=== PATIENT | female | born 1940 | race Caucasian/White ===

== ENCOUNTER → 2023-07-10 13:30 | Outpatient (REF) | payer MEDICARE, SELFPAY | LOC: WDC 13:30 | PROVIDERS: ATTENDING PHYSICIAN Student in an Organized Health Care Education/Training Program | DX: Z12.31 Encounter for screening mammogram for malignant neoplasm of breast (principal); M81.0 Age-related osteoporosis without current pathological fracture | CPT/HCPCS: 77063; 77067; 77080 ==

== ENCOUNTER 2023-09-28 15:10 | Inpatient (IN) | payer MEDICARE, SELFPAY ==
[2023-09-28] VITALS (15 sets, daily range): BP systolic 111–138; BP diastolic 51–80; BMI 35.3
--- NOTE | 2023-09-28 12:27 | ED TECH ---
A STEMI ALERT was called #[id number]#@12:18 PM Per .
--- NOTE | 2023-09-28 12:30 | ED.GENMED ---
History of Present Illness
General
Chief Complaint: Cardiac Symptoms
Source: patient
Exam Limitations: none
Time Seen by Provider: 09/28/23 12:27
Nursing documentation reviewed up to this point in time: agreed with
Travel History
Have you had any contact with someone who has COVID-19?: No
Do you have any symptoms of coronavirus? Fever > 100 degrees, chills, cough, shortness of breath, sore throat, loss of taste or smell, muscle aches, or headache?: No
History of Present Illness
History of Present Illness:
Patient presents to ED secondary to dizziness, nausea, along with abdominal pain. Patient's friend also noted 'slurred speech' and 911 was called. When medics arrived at scene, patient was complaining of nausea sensation and was found to be
hypotensive. Prehospital EKG revealed potential ST elevation [place]. Upon arrival, patient is somnolent but are easily arousable, and is only complaining abdominal pain and nausea sensation. Denies chest pain or shortness of breath. Denies headache.
Denies previous history of similar symptoms.
Past History
Past History
ED Past Medical History: GERD, HTN and Other (colon Polyps)
Social History
Tobacco: Non-smoker
Family History
Family History: Cancer (colon)
Review of Systems
Review of Systems
Allergies reviewed?: Yes
All Other Systems: ROS reviewed and negative except as documented in HPI and ROS
Constitutional: Reports no symptoms
Respiratory: Reports no symptoms; Denies trouble breathing
Cardiac: Denies chest pain or syncope
ABD/GI: Reports abdominal pain and nausea; Denies vomiting
Musculoskeletal: Reports no symptoms
Skin: Reports no symptoms
Neurological: Reports dizzy
Phy Exam
Physical Exam
Physical Exam:
Physical Exam
General: moderate distress, ill appearing. afebrile
Head: nc/at. eomi
Neck: supple. no meningeal signs.
Heart: s1/s2 regular rate and rhythm, systolic ejection murmur. equal radial pulses.
Lungs: no acute respiratory distress. clear bilaterally
Abdomen: normal bowel sounds. diffusely moderately tender with mild distention.
Neuro: somnolent but easily arousable. no focal neurological deficits
Skin: no rash
Psychiatric: well kept. interactive and cooperative
Extremities: no edema. no calf tenderness.
Course
Orders/Labs/Results
Orders:
Orders
09/28/23
Electrocardiogram (*1) Stat
Reason for Study: Chest Pain
Comment: DONE NO ORDER ENTERED
09/28/23 12:21
EKG [Electrocardiogram (*1)] Stat
Reason for Study: Chest Pain
09/28/23 12:22
EKG- Treatment ONCE
09/28/23 12:24
Ondansetron Injectable [Zofran] 4 mg .ROUTE .STK-MED ONE
Ondansetron Injectable [Zofran] 4 mg .ROUTE .STK-MED ONE
09/28/23 12:27
CT Head & Neck Angio W/wo IV Urgent
Comment:
Reason For Exam: dizziness/slurred speech
09/28/23 12:28
CT Chest/abd/pelvis Angio W/wo Urgent
Comment:
Reason For Exam: abdominal pain
09/28/23 12:29
Complete Blood Count/With Diff Urgent
Comprehensive Metabolic Panel Urgent
Lipase Urgent
Comment: ADD-ON
PT/INR [Prothrombin Time] Urgent
PTT Urgent
Comment: ADD ON
Troponin I Urgent
09/28/23 12:52
Fentanyl Citrate/Pf [Sublimaze] 25 mcg IV NOW STA
Ondansetron Injectable [Zofran] 4 mg IV NOW STA
09/28/23 12:56
0.9% Sodium Chloride 500 ml [Nss] 500 ml IV BOLUS
09/28/23 13:03
Type+Screen Urgent
09/28/23 13:53
Aspirin Chewable [Low Strength Aspirin] 324 mg PO NOW STA
09/28/23 13:[address] Non Medication Order As Directed
Physician Order: PTT 6 hours after initial start of Heparin infusion
Above order entered?: Yes
09/28/23 13:55
Add On- LAB Urgent
Tests Added?: PTT
09/28/23 14:00
Heparin 49815 Units/250 ml 25,000 units in 250 ml IV PER PROTOCOL
Weight to be used for heparin protocol in kilograms (kg):: 83.9
Protocol:: Cardiac Tx/Acute Coronary
PTT Goal Range to be used:: PTT 73 to 111 seconds
Order type:: Initial
INITIAL Infusion Dose (UNITS/KG/hr) & then follow protocol:: 12 units/kg/hr
Infusion Dose in UNITS/hr & then follow protocol (UNITS/hr):: 1,000
INFUSION RATE in mL/hr & then follow protocol (mL/hr):: 10
PTT less than or equal to 64 seconds:: Increase rate by 200 units/hr (+ 2 mL/hr)
PTT 64.1 to 72.9 seconds:: Increase rate by 100 units/hr (+ 1 mL/hr)
PTT 73 to 111 seconds:: Target Range. No change in rate.
PTT 111.1 to 130.9 seconds:: Decrease rate by 100 units/hr (- 1 mL/hr)
PTT 131 to 199.9 seconds:: HOLD for 1 hr. Then decrease rate by 200 units/hr (- 2 mL/hr)
PTT greater than or equal to 200 seconds:: HOLD for 2 hrs & Notify Provider. Then decrease by 200 units/hr (-
2 mL/hr)
Lab follow-up:: Each change, PTT q6h until 2 consecutive are therapeutic. Then PTT
daily.
09/28/23 14:05
Add On- LAB Routine
Tests Added?: lipase
09/28/23 14:32
Admit/Transfer Patient As Directed
Co-Sign Provider:
Level of Care: Inpatient admission
Assign to:: IVU
Physician / Group: [facility]
Diagnosis: ACS
Reason for Hospitalization: Cardio consult
Expected length of stay greater than two midnights?: Yes
ELOS- Estimated Length of Stay in days: 3
I certify the patient meets the requirements for IP care: Yes
09/28/23 14:34
Code Status As Directed
Resuscitation Status: Full Code
09/28/23 15:22
0.9% Sodium Chloride 1000 ml [Nss] 1,000 ml IV 80 mls/hr
Acetaminophen [Tylenol] 650 mg PO Q6HPRN PRN
Dextrose 50%-Water [Dextrose 50% Syringe] 12.5 grams IV T30CPNT PRN
Glucagon [GlucaGen] 1 mg IM PRN PRN
Morphine Sulfate 2 mg IV Q4HPRN PRN
Ondansetron Injectable [Zofran] 4 mg IV Q6HPRN PRN
09/28/23 15:22
Echo 2D MMode Color/Doppler [Echo 2D MMode Color/Doppler] Routine
Reason for Study: ACS
CARDIOLOGY CONSULT Routine
Consulting Provider: Naveed Reeves
Was physician already notified: Yes
Activity As Directed
Activity Level: With Assistance
Bedside Glucose Monitoring As Directed
Frequency: AC&HS
Additional Instructions:: Change to q6h if pt on TPN, tube feeding or not eating
09/28/23 16:30
Insulin Aspart Corrective Low [Novolog Flexpen-Low Resistance] See Protocol SC AC
09/28/23 18:00
Duloxetine Delayed Release [Cymbalta Delayed Release] 60 mg PO QPM
09/28/23 18:13
Troponin I Q6H
09/28/23 20:00
Metoprolol [Lopressor] 25 mg PO BID
09/28/23 20:58
PTT Urgent
09/28/23 22:00
Gabapentin [Neurontin] 300 mg PO HS
Tramadol HCl [Ultram] 50 mg PO HS
09/28/23 23:38
Urinalysis Routine
Date Specimen was Collected: 09/28/23
Time Specimen was Collected: 23:35
09/29/23 04:22
Complete Blood Count/With Diff IN AM
Comprehensive Metabolic Panel IN AM
Glycohemoglobin (HgbA1c) IN AM
Troponin I Q6H
09/29/23 08:00
Aspirin Low Dose EC [Aspir Low (Enteric Coated)] 81 mg PO DAILY
Docusate Sodium [Colace] 100 mg PO DAILY
Duloxetine Delayed Release [Cymbalta Delayed Release] 30 mg PO DAILY
09/30/23 01:44
Comprehensive Metabolic Panel IN AM
Abnormal Lab Results
09/28/23
12:29
WBC 12.6 H 10^3/uL
(4.8-10.8)
MCHC 32.6 L g/dL
(33.0-37.0)
RDW 15.9 H %
(11.5-14.5)
Abs Immat Gran (auto) 0.1 H 10^3/uL
(0-0.05)
Absolute Neuts (auto) 10.7 H 10^3/uL
(1.4-6.5)
Neutrophils % 85.1 H %
(42.2-75.2)
Lymphocytes % 10.9 L %
(20.5-51.1)
Carbon Dioxide 20 L mmol/L
(22-30)
BUN 37 H mg/dl
(7-17)
Creatinine 1.7 H mg/dL
(0.6-1.0)
Glucose 230 H mg/dl
(70-99)
AST 47 H U/L
(14-36)
Alkaline Phosphatase 172 H U/L
(38-126)
Lipase 402 H U/L
(23-300)
09/28/23 12:29
09/28/23 12:29
Vital Signs
Initial and Last Documented VS:
Initial Vital Signs
Pulse Resp BP
82 14 124/76
09/28/23 12:24 09/28/23 12:24 09/28/23 12:24
Last Documented Vital Signs
Temp Pulse Resp BP Pulse Ox
98.9 F 70 18 145/67 97
09/29/23 22:52 09/29/23 17:35 09/29/23 22:52 09/29/23 17:32 09/29/23 22:52
MDM/Problems Addressed
MDM/Problems Addressed:
Although prehospital EKG and initial EKG obtained upon arrival to ED suggests ST elevation on inferior leads with reciprocal changes on leads I and aVL, patient does not have any chest pain. However, patient is complaining of significant abdominal
pain with mild distention with nausea sensation. There is a clinical concern for potential dissection. As such, spoke with cardiac cath attending, , and decision made to obtain CT angiogram immediately for further evaluation.
CT neck/chest/abd/pel - no dissection.
Repeat EKG - normalization of initial ST elevation. Discussed with -in light of patient's ongoing abdominal pain without chest pain, increased creatinine level, along with normalization of EKG, does not feel that patient needs emergent
cardiac cath. Instead, recommends cardiology evaluation at bedside along with potential surgical evaluation, if abdominal pain continues.
Patient being evaluated at bedside by Dr. Reeves, [place] [facility].
Critical care statement: A total of 60 minutes of critical care time was provided for this patient. This includes management of unstable vital signs, evaluation of the patient at bedside, reviewing the patient's pertinent medical records, discussion
with consultants, review of old EKGs and review of pertinent medical records. This time with separate from time utilized to perform the aforementioned documented procedures
*EKG
Interpreted by ED Provider?: Yes
EKG Intrepretation Date: 09/28/23
Heart Rate: 81
Rate: normal
Rhythm: sinus
Ischemia: ST elevation
*Critical Care Note
Total Time (30-74mins, 75-104mins- exclusive of procedures): 60 min
ED Attending Note
-
Portions of this chart may have been created with voice recognition software.� Occasional wrong word or��sound alike� substitutions may have occurred due to the inherent limitations of voice recognition software.
Discharge Plan
Departure
Patient Disposition: Admit
Date of Disposition: 09/28/23
Time of Disposition: 13:46
Admit to: IMU
Presentation/result/management discussed w/ accepting MD/DO: Hospitalist
Discharge Problem:
Abnormal ECG, Acute renal failure (ARF), Abdominal pain
Interventions
Interventions:
*Risk Screen - Suicide Last Done: 09/28/23 12:53
*General Assessment Last Done: 09/28/23 12:36
*Neglect/Abuse Screening Last Done: 09/28/23 12:53
ED- Fall Risk Assessment Last Done: 09/28/23 15:58
*ED COVID-19 Vaccine History Last Done: 09/28/23 12:36
*Nursing Disposition Last Done: 09/28/23 15:58
ED- Pulmonary Assessment Last Done: 09/28/23 12:57
ED- Cardiac Assessment Last Done: 09/28/23 12:57
Discharge Date and Time
Discharge Date/Time: 09/28/23 15:58
[2023-09-28 12:38] LABS: % Basophils 0.2 % (0-2); % Eosinophils 0.9 % (0-6); % Immature Granulocytes 0.5 % (0-0.5); % Lymphocytes 10.9 % (20.5-51.1); % Monocytes 2.4 % (1.7-9.3); % Neutrophils 85.1 % (42.2-75.2); Absolute Eosinophils 0.1 10^3/uL (0-0.7); Absolute Immature Granulocytes 0.1 10^3/uL (0-0.05); Absolute Lymphocytes 1.4 10^3/uL (1.2-3.4); Absolute Monocytes 0.3 10^3/uL (0.1-0.6); Absolute Neutrophils 10.7 10^3/uL (1.4-6.5); Hematocrit 40.8 % (37.0-47.0); Hemoglobin 13.3 g/dL (12.0-16.0); Mean Corp Hgb Conc. 32.6 g/dL (33.0-37.0); Mean Corpuscular Hgb 28.4 pg (27.0-31.0); Mean Platelet Volume 9.5 fL (7.4-10.4); Nucleated Red Blood Cells % 0 %; Platelet Count 317 10^3/uL (130-400); Red Blood Cell Count 4.69 10^6/uL (4.20-5.40); Red Cell Dist. Width 15.9 % (11.5-14.5); White Blood Cell Count 12.6 10^3/uL (4.8-10.8)
[2023-09-28 12:50] LABS: INR 1.11; PT 14.1 Sec (11.4-14.6)
[2023-09-28 12:51] LABS: ALT (SGPT) 30 U/L (0-35); AST (SGOT) 47 U/L (14-36); Albumin 4.6 g/dl (3.5-5.0); Alkaline Phosphatase 172 U/L (38-126); Blood Urea Nitrogen 37 mg/dl (7-17); Calcium 9.8 mg/dl (8.4-10.2); Carbon Dioxide 20 mmol/L (22-30); Chloride 105 mmol/L (98-107); Glucose 230 mg/dl (70-99); Potassium 4.5 mmol/L (3.5-5.1); Sodium 140 mmol/L (135-145); Total Bilirubin 0.8 mg/dl (0.2-1.3); Total Protein 7.2 g/dl (6.3-8.2); eGFR 29.94
[2023-09-28] MEDS: SUBLIMAZE 25 MCG IV (12:56)
[2023-09-28] MEDS: ZOFRAN 4 MG IV (12:56)
[2023-09-28 13:02] LABS: Troponin I 0.015 ng/ml
[2023-09-28] MEDS: NSS 500 IV (13:10)
--- NOTE | 2023-09-28 14:09 | CON.CAR ---
Consultation
Consultation Request
Date/Time Consultation Requested: 09/28/23 1:30
Date/Time Consultation Performed: 09/28/23 1:40
Requesting Provider: Dr Atwood
Performing Provider: Dr Reeves
Reason for Consultation: ST elevation/abd pain
Medical History
-
Chief Complaint: abd pains
History of Present Illness:
83-year-old female with a past medical history of moderate aortic stenosis, non-insulin dependent diabetes, hypertension, hyperlipidemia and sleep apnea presents to [facility] with abdominal pains, nausea, and sweats. The patient states she
was in her usual state of health when today she came home after her 1.7 mile walk and went to the bathroom. She was having a bowel movement when she suddenly felt marked epigastric and abdominal pains, sweats, and nausea. She felt like she was
weak and could not move. The pains persisted and she felt very tired. She denied any chest pains. She was unable to tack picker the phone to call 911. She spoke with a neighbor who called EMS and brought her to the emergency room. While on the way
to the emergency room she was found to have inferior ST elevation with reciprocal lateral depression. She had no chest pains continue to feel generalized weakness. She also noticed some pain in her back and left shoulder. She was evaluated for
urgent care in the cardiac [employer] but was felt with her abnormal symptoms to proceed with CT scanning. CT of the chest abdomen and pelvis was negative for aortic dissection or any marked abdominal pathology. CT scan of the head also was
unremarkable. Her EKG was repeated and her ST elevation resolved. Currently she is resting in bed and denies any abdominal pains, sweats, or nausea. She does have some residual left scapular and back pains. She does have a history of spinal
stenosis. She also was recently treated with antibiotics for a bladder infection for 5 days and finished today. She believes this was with TMP sulfa. She has no bleeding. She states she has never had the symptoms previously.
Past Medical History
Past Medical History: Cancer (Breast cancer status post left mastectomy 2008), GERD (Esophagitis, history of duodenal ulcer), HTN, Hypercholesterolemia, NIDDM, Valvular Disease (Moderate aortic stenosis) and Other (Fibromyalgia)
Past Surgical History: Orthopedic (Right shoulder replacement 2019, L2-L5 laminectomy, bilateral knee replacements 2006, mid urethral sling 2020, gastric band 1997, mastectomy left 2008)
Social History
Tobacco: Non-Smoker
Alcohol: None
Drug: None
Living: With Family
Employment: Retired
Family History
Family History: CAD and Hypertension
Allergies / Home Medications
Allergy/AdvReac Type Severity Reaction Status Date / Time
adhesive Allergy SKIN TEARS Verified 03/13/21 11:51
chlorhexidine Allergy Rash Verified 03/13/21 12:37
[facility]
�Medication �Instructions �Recorded �Confirmed �Type
amlodipine 5 mg tablet 5 mg PO DAILY 03/25/17 09/28/23 History
celecoxib 200 mg capsule 200 mg PO DAILY 03/25/17 09/28/23 History
duloxetine 30 mg capsule,delayed 30 mg PO DAILY 03/25/17 09/28/23 History
release
omeprazole 20 mg capsule,delayed 20 mg PO Q72H 03/25/17 09/28/23 History
release
tramadol 50 mg tablet 50 mg PO HS 03/25/17 09/28/23 History
Turmeric W/ Black Pepper Extra 1 tab PO HS 03/09/21 09/28/23 History
Vitamin B Complex 1,200 units sublingual SA 03/09/21 09/28/23 History
hpwsglg-iiq-qbn S7-Z0-ymvjjxct 250 1 ea PO DAILY 03/09/21 09/28/23 History
mg-40 mg-5 mg-125 unit tablet
(Calcium Citrate Plus (pyridoxine))
docusate sodium 100 mg capsule 100 mg PO DAILY 03/09/21 09/28/23 History
duloxetine 60 mg capsule,delayed 60 mg PO QPM 03/09/21 09/28/23 History
release
gabapentin 300 mg capsule 300 mg PO HS 03/09/21 09/28/23 History
multivitamin (One Daily Essential 1 ea PO DAILY 03/13/21 09/28/23 History
tablet)
cholecalciferol (vitamin D3) 25 50 mcg PO DAILY 09/28/23 09/28/23 History
mcg (1,000 unit) tablet (Vitamin
D3)
lisinopril 40 mg tablet 40 mg PO DAILY 09/28/23 09/28/23 History
simvastatin 10 mg tablet 10 mg PO HS 09/28/23 09/28/23 History
Review of Systems
-
History Source: Patient
Constitutional: Fatigue
EENT: No Symptoms
Respiratory: Trouble Breathing
Cardiac: Diaphoresis
Abdomen/GI: Abdominal Pain and Nausea
: No Symptoms
Musculoskeletal: No Symptoms
Skin: No Symptoms
Neurological: Weakness
Endocrine: No Symptoms
Hematologic/Lymphatic: No Symptoms
Physical Exam
Vital Signs
Pulse Resp BP Pulse Ox
85 13 124/76 94
09/28/23 13:00 09/28/23 13:00 09/28/23 12:37 09/28/23 12:57
Lab Results
09/28/23 12:29
09/28/23 12:29
Troponin I 0.015 ng/ml 09/28/23 12:29
Physical Exam
General: Well Developed, Well Nourished and No Apparent Distress
HEENT: Normocephalic and Anicteric
Respiratory: Clear and Non Labored Respirations
Cardiac: S1/S2, Regular Rhythm and Murmur (3/6 syst RSB)
GI: Soft, Non Tender and Non Distended
Genito-urinary: No Costovertebral Tender
Musculoskeletal: Edema (Trace edema)
Skin: Warm and Dry
Neuro: AO x 3
Psych: Calm
Impression / Plan
-
Assess:
Epigastric pain, nausea, sweats
Inferior ST elevation which has resolved
Acute renal failure with creatinine of 1.7 (baseline normal)
moderate aortic stenosis
Hypertension
Hyperlipidemia
Xqy-nzbgjlq-qbpqdwiim diabetes
History of breast cancer status postmastectomy 2008
Fibromyalgia
History of duodenal ulcer/GERD
Anemia
Recent UTI status post Bactrim treatment
Echo 12/19: LVEF 65%, moderate aortic stenosis with mean gradient of 31, aortic valve area 1.3, mild TR with PA pressure 48
Plan:
She presents with severe abdominal pains, nausea, sweats and inferior ST elevation which has resolved.
CT scan of the chest abdomen pelvis had no aortic dissection or significant abdominal pathology. Preliminary read on the head CT is overall unremarkable for stroke.
The etiology of her symptoms remains somewhat unclear. I suspect that she likely has some level of coronary artery disease with her symptoms and abnormal EKG although her EKG findings are dramatically improved.
Will give aspirin now. Start IV heparin with no bolus. Will add metoprolol 25 mg p.o. every 12.
Continue to trend troponin and check echocardiogram. I suspect troponin will be abnormal.
Her creatinine is elevated at 1.7. Will gently hydrate and avoid all renal toxic drugs including RAYMUNDO inhibitors. This could be from recent antibiotics for UTI. It sounds like she was getting Bactrim.
I suspect she may need a cardiac catheterization this admission but for now I will hold off and treat her conservatively.
Okay to use morphine for pain.
She does have moderate aortic stenosis and we will reevaluate her aortic valve.
Data Reviewed
-
EKG: Tracing Personally Visualized and interpreted
Radiology: Report Reviewed by me
Medical Tests (Nuc Med, Echo etc): Report Reviewed by me
Labs: Labs Reviewed by me
Old Records: Reviewed
[2023-09-28] MEDS: HEPARIN 25000 UNITS/250 ML IV (14:14)
[2023-09-28] MEDS: LOW STRENGTH ASPIRIN 324 MG PO (14:29)
--- NOTE | 2023-09-28 14:39 | HPS.HSE ---
Family Physician
-
Family Physician: Nyla Bundy,
Chief Complaint
-
Abdominal pain, nausea
History of Present Illness
83-year-old female who was in her usual state of health up until this morning when she was straining on the toilet trying to have a bowel movement around 10 AM when she had sudden onset of abdominal discomfort and nausea and sweats.
Her friend noticed that she was slurring her speech. Paramedics arrived and noted that she is hypotensive.
She denies chest pain or shortness of breath. Denies headache.
Is complaining of back pain from her lower back up to her neck. Also complaining of left-sided posterior neck pain that she states is acute on chronic.
She was started on antibiotics for a recent UTI, last dose to be this evening. She believes it is sulfamethoxazole.
Medical History
Past Medical History
Past Medical History: Reports Other
Additional Past Medical History:
Cervical spine stenosis
Diverticulosis
GERD
Esophagitis
Duodenal ulcer
Hyperlipidemia
Diet controlled DM 2
Essential hypertension
Colon polyps
Breast cancer
Moderate aortic stenosis
Fibromyalgia
Past Surgical History: Reports Other
Additional Past Surgical History:
Gastric bypass surgery 1997
Cholecystectomy
Bilateral knee replacement
Right shoulder replacement
Left mastectomy 2008
L2-L5 laminectomy
Mid urethral sling 2020
Social History
Tobacco: Non-smoker
Alcohol: Occasional
Drug: None
Living: With Family
Employment: Retired
Family History
Family History: Not pertinent
Allergies / Home Medications
Allergies reflects when Allergies were last updated in [facility].
Home Medications with original date entered in [facility]
Allergy/Medication List:
Allergies
Allergy/AdvReac Type Severity Reaction Status Date / Time
adhesive Allergy SKIN TEARS Verified 03/13/21 11:51
chlorhexidine Allergy Rash Verified 03/13/21 12:37
[From [facility]]
Home Medications
amlodipine 5 mg tablet 5 mg PO DAILY 03/25/17
celecoxib 200 mg capsule 200 mg PO DAILY 03/25/17
duloxetine 30 mg capsule,delayed release 30 mg PO DAILY 03/25/17
omeprazole 20 mg capsule,delayed release 20 mg PO Q72H 03/25/17
tramadol 50 mg tablet 50 mg PO HS 03/25/17
Turmeric W/ Black Pepper Extra 1 tab PO HS 03/09/21
Vitamin B Complex 1,200 units sublingual SA 03/09/21
ratojsm-pdh-nod G0-A5-cshxlddc 250 mg-40 mg-5 mg-125 unit tablet (Calcium Citrate Plus (pyridoxine)) 1 ea PO DAILY 03/09/21
docusate sodium 100 mg capsule 100 mg PO DAILY 03/09/21
duloxetine 60 mg capsule,delayed release 60 mg PO QPM 03/09/21
gabapentin 300 mg capsule 300 mg PO HS 03/09/21
multivitamin (One Daily Essential tablet) 1 ea PO DAILY 03/13/21
cholecalciferol (vitamin D3) 25 mcg (1,000 unit) tablet (Vitamin D3) 50 mcg PO DAILY 09/28/23
lisinopril 40 mg tablet 40 mg PO DAILY 09/28/23
simvastatin 10 mg tablet 10 mg PO HS 09/28/23
Review of Systems
-
History Source: Patient
A 12 point ROS was completed and negative except as noted: Yes
Abdomen/GI: Reports Abdominal Pain and Nausea
Physical Exam
Vital Signs
Vital Signs
Pulse Resp BP Pulse Ox
80 20 138/80 94
09/28/23 14:16 09/28/23 14:16 09/28/23 14:16 09/28/23 14:15
Physical Exam
General: Well Developed, Well Nourished, No Apparent Distress and Comfortable
HEENT: NormoCephalic, Anicteric and Moist mucous membranes
Respiratory: Clear
Cardiac: S1/S2 and Regular Rhythm
Breast: Deferred by me
GI: Soft, Non Tender and Non Distended
Genito-urinary: Deferred by me
Musculoskeletal: No Clubbing, No Cyanosis and No Edema
Skin: Warm and Dry
Neuro: AO x 3, Nonfocal/grossly intact and Cranial Nerves Intact
Hematologic/Lymphatic: No Lymphadenopathy
Psych: Calm
Laboratory Results
-
09/28/23 12:29
09/28/23 12:29
Laboratory Results
PT 14.1 Sec (11.4-14.6) 09/28/23 12:29
INR 1.11 09/28/23 12:29
APTT Cancelled 09/28/23 13:54
Total Bilirubin 0.8 mg/dl (0.2-1.3) 09/28/23 12:29
AST 47 U/L (14-36) H 09/28/23 12:29
ALT 30 U/L (0-35) 09/28/23 12:29
Alkaline Phosphatase 172 U/L (38-126) H 09/28/23 12:29
Troponin I 0.015 ng/ml 09/28/23 12:29
Impression/Plan
-
ACS -inferior wall WA suspected based on ST elevation inferiorly on EKG. This would explain her hypotension pre-arrival. Admit to IVU. Consult cardiology. Trend troponins. IV fluids. Continue IV heparin, aspirin, beta-tl.
CTA does not show aortic dissection.
Her abdominal pain could be a manifestation of inferior wall WA. Mild lipase elevation noted but doubt clinical pancreatitis.
Staccato speech -unclear etiology. Reportedly CTA head and neck negative. Awaiting report. No focal neurologic findings on exam.
LATRELL -creatinine 1.7. Perhaps due to recent sulfamethoxazole exposure. Hold further antibiotics. Hold lisinopril, Celebrex. Check urinalysis. IV fluid administration. Recheck labs tomorrow.
DM2 with hyperglycemia -diet controlled diabetes. Check hemoglobin A1c. Low resistance NovoLog scale.
Essential hypertension -hold amlodipine for hypotension.
Hyperlipidemia -she is on simvastatin.
Obesity due to excess calories
Full code
Updated family at the bedside.
[2023-09-28 14:42] LABS: Lipase 402 U/L (23-300)
[2023-09-28 14:45] LABS: APTT 30.1 Sec (23.4-35.0)
[2023-09-28 16:24] LABS: Glucose - Point of Care 176 mg/dl (70-99)
[2023-09-28] MEDS: NOVOLOG FLEXPEN-LOW RESISTANCE 1 UNITS SC (17:35)
[2023-09-28] MEDS: NSS 1000 IV (17:35)
[2023-09-28] MEDS: CYMBALTA DELAYED RELEASE 60 MG PO (18:05)
[2023-09-28] MEDS: LOPRESSOR 25 MG PO (19:58)
[2023-09-28 21:16] LABS: Glucose - Point of Care 182 mg/dl (70-99)
[2023-09-28 21:19] LABS: APTT 51.8 Sec (23.4-35.0)
[2023-09-28] MEDS: ULTRAM 50 MG PO (21:45)
[2023-09-28] MEDS: NEURONTIN 300 MG PO (21:46)
[2023-09-28 23:54] LABS: Urine Albumin Negative (Neg - Trace); Urine Bilirubin 1+ (Negative); Urine Character Slightly Cloudy (Clear); Urine Color Yellow; Urine Glucose Negative (Negative); Urine Ketone Negative (Negative); Urine Leukocyte Trace (Negative); Urine Nitrite Negative (Negative); Urine Occult Blood Negative (Negative); Urine Urobilinogen Negative (Neg - 1+)
[2023-09-29] VITALS (8 sets, daily range): BP systolic 110–150; BP diastolic 46–85; BMI 35.3
[2023-09-29 00:18] LABS: Urine Bacteria Many (Negative); Urine Squamous Cell >30 /LPF (Few)
[2023-09-29 00:19] LABS: Urine Red Blood Cell 0-2 /HPF (0-2); Urine White Cell 26-30 /HPF (0-5)
--- NOTE | 2023-09-29 01:01 | PTCARENOTE ---
OOB to bathroom using walker with supervision. Heparin infusing at 1200units/hr. SR 60-80's on the monitor. UA obtained and sent to lab. Sleeping at intervals.
[2023-09-29 04:38] LABS: % Basophils 0.2 % (0-2); % Eosinophils 1.1 % (0-6); % Immature Granulocytes 0.3 % (0-0.5); % Lymphocytes 10.8 % (20.5-51.1); % Monocytes 7.6 % (1.7-9.3); Absolute Eosinophils 0.1 10^3/uL (0-0.7); Absolute Lymphocytes 1.3 10^3/uL (1.2-3.4); Absolute Monocytes 0.9 10^3/uL (0.1-0.6); Absolute Neutrophils 9.7 10^3/uL (1.4-6.5); Hematocrit 32.7 % (37.0-47.0); Hemoglobin 10.9 g/dL (12.0-16.0); Mean Corp Hgb Conc. 33.3 g/dL (33.0-37.0); Mean Corpuscular Hgb 28.4 pg (27.0-31.0); Mean Corpuscular Volume 85.2 fL (81.0-99.0); Nucleated Red Blood Cells % 0 %; Red Blood Cell Count 3.84 10^6/uL (4.20-5.40); Red Cell Dist. Width 15.7 % (11.5-14.5); White Blood Cell Count 12.1 10^3/uL (4.8-10.8)
[2023-09-29 04:54] LABS: APTT 74.4 Sec (23.4-35.0)
[2023-09-29 05:02] LABS: ALT (SGPT) 30 U/L (0-35); AST (SGOT) 61 U/L (14-36); Albumin 3.5 g/dl (3.5-5.0); Alkaline Phosphatase 71 U/L (38-126); Blood Urea Nitrogen 48 mg/dl (7-17); Calcium 8.6 mg/dl (8.4-10.2); Carbon Dioxide 21 mmol/L (22-30); Chloride 107 mmol/L (98-107); Estimated Creatinine Clearance 27 ml/min; Glucose 102 mg/dl (70-99); Potassium 4.8 mmol/L (3.5-5.1); Sodium 135 mmol/L (135-145); Total Bilirubin 0.4 mg/dl (0.2-1.3); Total Protein 5.8 g/dl (6.3-8.2); eGFR 34.79
[2023-09-29 06:10] LABS: Platelet Count 221 10^3/uL (130-400)
[2023-09-29 06:11] LABS: Mean Platelet Volume 10.1 fL (7.4-10.4)
[2023-09-29] MEDS: NSS 1000 IV (06:17)
[2023-09-29 07:22] LABS: Glucose - Point of Care 113 mg/dl (70-99)
[2023-09-29] MEDS: CYMBALTA DELAYED RELEASE 30 MG PO (08:13)
[2023-09-29] MEDS: ASPIR LOW (ENTERIC COATED) 81 MG PO (08:13)
[2023-09-29] MEDS: LOPRESSOR 25 MG PO ×2 (08:13→19:32)
[2023-09-29] MEDS: NOVOLOG FLEXPEN-LOW RESISTANCE SC ×3 (08:14→17:05)
[2023-09-29] MEDS: COLACE PO (08:14)
--- NOTE | 2023-09-29 08:45 | W.PN.HOSP.TC ---
Today's Communication/Plan
-
Await brain MRI
Neurology consult
Atorvastatin
Assessment / Plan
Assessment / Plan
Gen-AAOx3, NAD, obese, speech much more fluent today
HEENT-NC, AT, anicteric, clear oral mm
Neck-supple
CV-reg, no M, +S1/S2
Lungs-clear B/L
Abd-soft, NT, ND
Ext-no edema
Musculoskeletal-no cyanosis, clubbing
Skin-warm and dry
Neuro-grossly non-focal
Psych-calm, cooperative
STEMI, inferior wall -continue IV heparin. Continue aspirin, beta-blockade. Troponin trending down. Cardiology following. Await echocardiogram. Timing of catheterization per cardiology. Hopefully renal function will improve by Saturday.
Dysarthria/staccato speech -concern for stroke. Patient states symptoms started approximately 10 AM on Saturday. Speech much more fluent today and patient states back to normal. Brain MRI pending. Neurology consulted. CTA head and neck without
significant pathology.
LATRELL -creatinine 1.5 today, improving. Perhaps due to recent sulfamethoxazole exposure, volume depletion. Hold further antibiotics. Hold lisinopril, Celebrex.
Acute gastroenteritis -nausea and diarrhea since yesterday morning. Recent course of antibiotics, concerning for C. difficile colitis. Check stool studies.
Overactive bladder -received Botox injection last week by Dr. Barrett. Started on empiric Bactrim prior to admission. Urinalysis shows pyuria, she has no UTI symptoms.
DM2 with hyperglycemia -diet controlled diabetes. Check hemoglobin A1c. Low resistance NovoLog scale. Glucose 102 this morning.
Essential hypertension -hold amlodipine for hypotension.
Hyperlipidemia -she is on simvastatin at home, will change to atorvastatin.
Chronic normocytic anemia -hemoglobin 10.9 today, near baseline. Etiology unclear. Monitor for now.
Obesity due to excess calories
Full code
Anticipated Discharge: > 48 hours
Subjective/Interval History
-
Date of Service: September 29, 2023
Patient seen and examined. States her speech is back to normal. Denies chest pain or shortness of breath. Complaining of diarrhea that started yesterday.
Objective Data
-
Labs:
Laboratory Results
09/28/23 09/29/23 09/29/23
20:58 04:22 10:30
WBC 12.1 H
Hgb 10.9 L
Hct 32.7 L
Plt Count 221 D
APTT 51.8 H 74.4 H Pending
Sodium 135
Potassium 4.8
Chloride 107
Carbon Dioxide 21 L
BUN 48 H
Creatinine 1.5 H
Glucose 102 H
Calcium 8.6
Total Bilirubin 0.4
AST 61 H
ALT 30
Alkaline Phosphatase 71
Vital Signs:
Vital Signs
Temp Pulse Resp BP Pulse Ox
99.3 F 71 18 138/59 95
09/29/23 04:07 09/29/23 08:13 09/29/23 04:07 09/29/23 08:13 09/29/23 04:07
I&O
09/28/23 09/29/23 09/30/23
06:59 06:59 06:59
Intake Total 1200 / 1200
Balance 1200 / 1200
Review of Systems
-
History Source: Patient
All other systems: Reviewed and negative
--- NOTE | 2023-09-29 09:03 | CON.NEURO ---
Neuro Assessment/Plan
Assessment
IMPRESSIONS/RECOMMENDATIONS:
Abrupt change in speech with slowing
Differential diagnosis includes acute ischemic stroke or functional neurological disorder
Plan
check MRI of brain as planned
consider additional neurovascular imaging dependent on MRI of brain result
goal of normotension
goal of normoglycemia
consider elevation of Simvastatin from 10 mg
provide medical education
DVT prophylaxis
Will continue to follow as outpatient. Thank you.
Consultation
Order
Date of Consultation: 09/29/23
Requesting Provider: Hospitalist
Reason for Consult: Speech change
Subjective/Objective
Subjective Data
Date of Service: September 29, 2023
Right-Handed
Patient developed sudden onset of speech slurring and slowing one day prior to presentation to this hospital at 10:00. Patient herself was unable respond adequately to this issue, needing help from neighbor who noted the problem. Associated with
pain in stomach followed by diarrhea, diaphoresis, left-sided neck pain. Continued mild left neck discomfort posteriorly.
No prior episodes, has had mild improvement of speech since onset of symptoms.
Objective Data
Vital Signs
Temp Pulse Resp BP Pulse Ox
37.4 C 71 18 138/59 95
09/29/23 04:07 09/29/23 08:13 09/29/23 04:07 09/29/23 08:13 09/29/23 04:07
Lab Results
09/29/23 04:22
09/29/23 04:22
PT 14.1 Sec (11.4-14.6) 09/28/23 12:29
INR 1.11 09/28/23 12:29
APTT 74.4 Sec (23.4-35.0) H 09/29/23 04:22
Sodium 135 mmol/L (135-145) 09/29/23 04:22
Potassium 4.8 mmol/L (3.5-5.1) 09/29/23 04:22
BUN 48 mg/dl (7-17) H 09/29/23 04:22
Glucose 102 mg/dl (70-99) H 09/29/23 04:22
Calcium 8.6 mg/dl (8.4-10.2) 09/29/23 04:22
Patient Allergies
adhesive Allergy (Verified 03/13/21 11:51)
SKIN TEARS
chlorhexidine [From Hibiclens] Allergy (Verified 03/13/21 12:37)
Rash
Review of Systems
-
History Source: Patient
All other systems: Reviewed and negative
EENT: Negative Decreased Vision or Swallowing Difficulty
Respiratory: Negative Trouble Breathing
Cardiac: Negative Chest Pain
Abdomen/GI: Diarrhea
Genitourinary: Negative Incontinence
Musculoskeletal: Back Pain and Neck Pain
Neuro: Negative Dizzy or Headache
Physical Exam
-
General: No Apparent Distress and Appears Stated Age
Eyes: OU Absent Papilledema, Round OU, [place] Conjunctivae and No Ptosis
HEENT: Anicteric and Moist Mucous Membranes
Neck: Full Range of Motion
Respiratory: No Dyspnea
Cardiac: No JVD
GI: Non-distended
Skin: Unremarkable
Extremities: No Clubbing, No Cyanosis and No Edema
Psych: Intact Judgement/Insight
Extended Neurological Exam
Mood & Affect: Mood Unremarkable and Affect Unremarkable
Attention Span & Concentration: Awake, Alert, Interactive and No Difficulty with 2 Step Request
Memory: Unremarkable
Tremor: Hand Tremor Absent and Head Tremor Absent
Involuntary Movement: None
Speech: Quantity Unremarkable; Negative Quality Unremarkable (slowed, not flat)
Cranial Nerve II: Left Eye: Pupillary Reactivity Unremarkable, Pupillary Size Unremarkable and Visual Abreu Intact
Cranial Nerve II: Right Eye: Pupillary Reactivity Unremarkable, Pupillary Size Unremarkable and Visual Abreu Intact
Cranial Nerves III, IV, : Extraocular Movement: Extraocular Movement Full in all Directions
Cranial Nerve VII: Facial Symmetry: Normal Facial Symmetry
Cranial Nerve VIII: Hearing: Unremarkable Hearing to Normal Conversational Volume
Cranial Nerves IX, X: Palate Movement: Palate Elevation Symmetric
Cranial Nerve XI: Shoulder Shrug: Unremarkable
Cranial Nerve XII: Tongue Protusion: Midline
Muscle Strength, Overall: Full Throughout
Muscle Bulk & Tone: Bulk Unremarkable and Tone Unremarkable
Pronator Drift: No Drift in Upper Extremities
Deep Tendon Reflexes: Trace Throughout
Touch Sensation: Unremarkable and Double Simultaneous Stimulation Unremarkable
Coordination: Ywgihe-aovb-egbvwv Testing Unremarkable
Babinski Sign: Absent Bilaterally
Data Reviewed
-
CT Head: Report Reviewed
MRI Head: Image Reviewed
Labs: Report Reviewed
Reviewed with: Physician and Patient
Old Records: Summarized
Medications
-
Active Medications
Generic Name Dose Route Start Last Admin
Trade Name Freq PRN Reason Stop Dose Admin
Acetaminophen 650 mg 09/28/23 15:22
Acetaminophen 325 Mg Tablet PO 10/26/23 15:21
Q6HPRN PRN
mild pain/ fever>100.5F
Aspirin 81 mg 09/29/23 08:00 09/29/23 08:13
Aspirin 81 Mg (Enteric Coated) Tablet PO 10/27/23 07:59 81 mg
DAILY GORDY Administration
Atorvastatin Calcium 40 mg 09/29/23 18:00
Atorvastatin (Lipitor) 40 Mg Tablet PO 10/27/23 17:59
QPM GORDY
Dextrose 12.5 grams 09/28/23 15:22
Dextrose 50% (0.5 Grams/Ml) 50 Ml Syringe IV 10/26/23 15:21
[id number] PRN
hypoglycemia
Protocol
Docusate Sodium 100 mg 09/29/23 08:00 09/29/23 08:14
Docusate Sodium 100 Mg Capsule PO 10/27/23 07:59 Not Given
DAILY GORDY
Duloxetine HCl 30 mg 09/29/23 08:00 09/29/23 08:13
Duloxetine Delayed Release 30 Mg Capsule PO 10/27/23 07:59 30 mg
DAILY GORDY Administration
Duloxetine HCl 60 mg 09/28/23 18:00 09/28/23 18:05
Duloxetine Delayed Release 60 Mg Capsule PO 10/26/23 17:59 60 mg
QPM GORDY Administration
Gabapentin 300 mg 09/28/23 22:00 09/28/23 21:46
Gabapentin 300 Mg Capsule PO 10/26/23 21:59 300 mg
HS GORDY Administration
Glucagon 1 mg 09/28/23 15:22
Glucagon 1 Mg Vial IM 10/26/23 15:21
PRN PRN
hypoglycemia
Protocol
Heparin Sodium 25,000 units in 250 mls @ 0 mls/hr 09/28/23 14:00 09/28/23 14:14
Heparin 89367 Units/250 Ml IV 250 mls
PER PROTOCOL GORDY Administration
Protocol
Per Protocol
Sodium Chloride 1,000 mls @ 80 mls/hr 09/28/23 15:22 09/29/23 06:17
Nss IV 09/29/23 16:21 1,000 mls
.[id number] GORDY Administration
Insulin Aspart 0 units 09/28/23 16:30 09/29/23 08:14
Insulin Aspart Low Resistance 300 Units/3 Ml Pen.Injctr SC 10/26/23 16:29 Not Given
AC GORDY
Protocol
Metoprolol Tartrate 25 mg 09/28/23 20:00 09/29/23 08:13
Metoprolol 25 Mg Regular Release Tablet PO 10/26/23 19:59 25 mg
BID GORDY Administration
Morphine Sulfate 2 mg 09/28/23 15:22
Morphine 2 Mg/Ml Syringe IV 10/12/23 15:21
Q4HPRN PRN
severe pain
Ondansetron HCl 4 mg 09/28/23 15:22
Ondansetron 4 Mg/2 Ml Vial IV 10/26/23 15:21
Q6HPRN PRN
NAUSEA/VOMITING
Sodium Chloride 0 flush 09/28/23 16:00
Sodium Chloride 0.9% (Flush) Syringe IV 10/26/23 15:59
PER PROTOCOL GORDY
Tramadol HCl 50 mg 09/28/23 22:00 09/28/23 21:45
Tramadol Hcl 50 Mg Tablet PO 10/26/23 21:59 50 mg
HS GORDY Administration
Home Medications
�Medication �Instructions �Recorded
amlodipine 5 mg tablet 5 mg PO DAILY 03/25/17
celecoxib 200 mg capsule 200 mg PO DAILY 03/25/17
duloxetine 30 mg capsule,delayed 30 mg PO DAILY 03/25/17
release
omeprazole 20 mg capsule,delayed 20 mg PO Q72H 03/25/17
release
tramadol 50 mg tablet 50 mg PO HS 03/25/17
Turmeric W/ Black Pepper Extra 1 tab PO HS 03/09/21
Vitamin B Complex 1,200 units sublingual SA 03/09/21
zxvgbun-uzl-ywe I2-M7-otnbxazd 250 1 ea PO DAILY 03/09/21
mg-40 mg-5 mg-125 unit tablet
(Calcium Citrate Plus (pyridoxine))
docusate sodium 100 mg capsule 100 mg PO DAILY 03/09/21
duloxetine 60 mg capsule,delayed 60 mg PO QPM 03/09/21
release
gabapentin 300 mg capsule 300 mg PO HS 03/09/21
multivitamin (One Daily Essential 1 ea PO DAILY 03/13/21
tablet)
cholecalciferol (vitamin D3) 25 50 mcg PO DAILY 09/28/23
mcg (1,000 unit) tablet (Vitamin
D3)
lisinopril 40 mg tablet 40 mg PO DAILY 09/28/23
simvastatin 10 mg tablet 10 mg PO HS 09/28/23
Past History
Past History
ED Past Medical History: Cancer (Breast, squamous cell carcinoma), GERD, HTN, NIDDM, CT (September 2023) and Other (colon Polyps, urinary incontinence, fibromyalgia, iron deficiency anemia, osteoarthritis, benign familial pemphigus, neuropathy, sciatica,
osteoporosis)
ED Past Surgical History: Cholecystectomy, Orthopedic (Carpal tunnel syndrome release in the , bilateral total knee replacements 2006, right shoulder replacement 2019, L2-5 right hemilaminectomy), Urological (Vaginal sling) and Other (Vertical
band gastroplasty, left mastectomy with reconstruction, squamous cell carcinoma extraction, bilateral cataract extractions, epidural steroid injections cervical location)
Social History
Tobacco: Non-smoker
Living: alone
Family History
Family History: Cancer (colon)
--- NOTE | 2023-09-29 09:11 | W.PN.CARDCBS ---
Today's Communication / Plan
-
Continue aspirin, IV heparin, metoprolol, and atorvastatin
Agree with neurology evaluation and MRI of the brain
Creatinine improving and down to 1.5. No RAYMUNDO/ARB with renal insufficiency
I suspect her abnormal kidney function was due to Bactrim.
Tentative plan is for cardiac catheterization in a.m.
Impression / Plan
-
Assess:
Epigastric pain, nausea, sweats
Inferior ST elevation which has resolved
Acute renal failure with creatinine of 1.7 (baseline normal)
moderate aortic stenosis
Hypertension
Hyperlipidemia
Mob-onzseiz-vrhieuqbh diabetes
History of breast cancer status postmastectomy 2008
Fibromyalgia
History of duodenal ulcer/GERD
Anemia
Recent UTI status post Bactrim treatment
Echo 12/19: LVEF 65%, moderate aortic stenosis with mean gradient of 31, aortic valve area 1.3, mild TR with PA pressure 48
Plan:
She presents with severe abdominal pains, nausea, sweats and inferior ST elevation which has resolved.
CT scan of the chest abdomen pelvis had no aortic dissection or significant abdominal pathology. Head CT is overall unremarkable for stroke.
Troponin peaked at 6. Her EKG had improved yesterday and we will repeat today. Continue aspirin, IV heparin, metoprolol, and atorvastatin. Check lipids.
She still has some speech issues at times and agree with neurology evaluation and MRI of the brain.
Will need cardiac catheterization in AM. Keep n.p.o. after midnight.
She does have moderate aortic stenosis and we will reevaluate her aortic valve with an echocardiogram.
Creatinine is improved and down to 1.5. Hopefully with continued hydration this will continue to improve.
Progress Note - Drapery Worker
Subjective
Date of Service: September 29, 2023
She feels better and epigastric and shoulder pains have improved. She is having some diarrhea. No chest pains.
Objective
Labs:
09/29/23 04:22
06/02/24 04:22
Labs
Hgb 10.9 g/dL (12.0-16.0) L 09/29/23 04:22
Hct 32.7 % (37.0-47.0) L 09/29/23 04:22
Plt Count 221 10^3/uL (130-400) D 09/29/23 04:22
PT 14.1 Sec (11.4-14.6) 09/28/23 12:29
INR 1.11 09/28/23 12:29
APTT 74.4 Sec (23.4-35.0) H 09/29/23 04:22
Sodium 135 mmol/L (135-145) 09/29/23 04:22
Potassium 4.8 mmol/L (3.5-5.1) 09/29/23 04:22
BUN 48 mg/dl (7-17) H 09/29/23 04:22
Creatinine 1.5 mg/dL (0.6-1.0) H 09/29/23 04:22
Glucose 102 mg/dl (70-99) H 09/29/23 04:22
Troponins
09/28/23 09/28/23 09/28/23
12:29 18:13 23:57
Troponin I 0.015 1.750 H* D 6.300 H* D
09/29/23
04:22
Troponin I 6.010 H*
Vital Signs and I&O:
Vital Signs
Temp Pulse Resp BP Pulse Ox
99.3 F 71 18 138/59 95
09/29/23 04:07 09/29/23 08:13 09/29/23 04:07 09/29/23 08:13 09/29/23 04:07
Vital Signs
Temp Pulse Resp BP Pulse Ox
99.3 F 71 18 138/59 95
09/29/23 04:07 09/29/23 08:13 09/29/23 04:07 09/29/23 08:13 09/29/23 04:07
Intake & Output
09/27/23 09/28/23 09/29/23 09/30/23
06:59 06:59 06:59 06:59
Intake Total 1200 / 1200
Balance 1200 / 1200
Physical Exam
Physical Exam
GEN: No distress, awake, Ox3
HEENT: supple, anicteric, mmm
LUNGS: CTA, no wheezes/rales
CV: Reg, S1/S2, 1/6 syst LSB, no gallop
ABD: soft, BS+, NT/ND
EXT: No edema
NEURO: Gross non-focal
SKIN: No rash
[2023-09-29 09:28] LABS: HDL Cholesterol 73 mg/dl; LDL Cholesterol, Calculated 26 mg/dl; Total Cholesterol 110 mg/dl (50-199); Triglyceride 58 mg/dl (10-149); Very Low Density Lipoprotein 11 mg/dl (0-30)
[2023-09-29 10:17] LABS: Glycohemoglobin (HgbA1c) 5.7 % (4.0-5.6)
[2023-09-29 11:53] LABS: Glucose - Point of Care 117 mg/dl (70-99)
[2023-09-29 12:15] LABS: APTT 60.5 Sec (23.4-35.0)
[2023-09-29] MEDS: HEPARIN 25000 UNITS/250 ML IV (14:04)
[2023-09-29 17:08] LABS: Glucose - Point of Care 134 mg/dl (70-99)
[2023-09-29] MEDS: LIPITOR 40 MG PO (17:10)
[2023-09-29] MEDS: CYMBALTA DELAYED RELEASE 60 MG PO (17:10)
[2023-09-29 18:57] LABS: APTT 183.7 Sec (23.4-35.0)
[2023-09-29] MEDS: TYLENOL 650 MG PO (19:33)
[2023-09-29 21:43] LABS: Glucose - Point of Care 120 mg/dl (70-99)
[2023-09-29] MEDS: ULTRAM 50 MG PO (21:47)
[2023-09-29] MEDS: NEURONTIN 300 MG PO (21:47)
[2023-09-30] VITALS (10 sets, daily range): BP systolic 110–164; BP diastolic 50–71; BMI 35.7
[2023-09-30 02:04] LABS: APTT 59.2 Sec (23.4-35.0)
[2023-09-30 02:38] LABS: ALT (SGPT) 26 U/L (0-35); AST (SGOT) 43 U/L (14-36); Albumin 3.4 g/dl (3.5-5.0); Alkaline Phosphatase 60 U/L (38-126); Blood Urea Nitrogen 33 mg/dl (7-17); Carbon Dioxide 20 mmol/L (22-30); Chloride 111 mmol/L (98-107); Estimated Creatinine Clearance 33 ml/min; Glucose 102 mg/dl (70-99); Potassium 4.5 mmol/L (3.5-5.1); Sodium 138 mmol/L (135-145); Total Bilirubin 0.5 mg/dl (0.2-1.3); Total Protein 5.7 g/dl (6.3-8.2); eGFR 45.48
--- NOTE | 2023-09-30 07:05 | W.PN.NEURO.1 ---
Today's Communication / Plan
-
-Okay from my standpoint for all cardiac procedures planned as well as anticoagulation
-Discussed metabolic derangements as well as acute stress probably are what is driving speech abnormality, anticipate improvement with time, if still present upon discharge would pursue outpatient speech therapy
-Not needing further neurologic workup
Will sign off call with questions and concerns
Neuro Assessment/Plan
Assessment
83-year-old woman with past medical history of hyperlipidemia and diet-controlled diabetes hypertension previous breast cancer cervical spine stenosis fibromyalgia and aortic stenosis presented to hospital with neck pain abdominal discomfort nausea
and sweats after bowel movement also had some slurred speech and had hypotension at that point.
She shows some inferior ST elevation elevated troponin to 6 as well as LATRELL with creatinine to 1.7
Planned for cardiac catheterization given likely NSTEMI
Patient has no evidence on history or exam for myasthenia gravis or other neuromuscular disorders
Brain MRI is negative for acute infarct
Patient slurred speech probably due to combination of hypotension and LATRELL and effects of NSTEMI. There may also be a component of stress/functional neurologic disorder. Expect improvement with time, may benefit from speech therapy as outpatient.
Subjective/Objective
Subjective Data
Date of Service: September 30, 2023
No acute events overnight, reviewed the brain MRI with the patient, her speech is not all the way normal but improving, no swallowing difficulty ptosis or diplopia
Objective Data
Vital Signs
Temp Pulse Resp BP Pulse Ox
98.3 F 63 18 110/62 95
09/30/23 04:00 09/30/23 06:30 09/30/23 04:00 09/30/23 04:19 09/30/23 04:00
Lab Results
09/29/23 04:22
09/30/23 01:44
PT 14.1 Sec (11.4-14.6) 09/28/23 12:29
INR 1.11 09/28/23 12:29
APTT 124.0 Sec (23.4-35.0) H 09/30/23 06:12
Sodium 138 mmol/L (135-145) 09/30/23 01:44
Potassium 4.5 mmol/L (3.5-5.1) 09/30/23 01:44
BUN 33 mg/dl (7-17) H 09/30/23 01:44
Glucose 102 mg/dl (70-99) H 09/30/23 01:44
Calcium 9.0 mg/dl (8.4-10.2) 09/30/23 01:44
LDL Cholesterol, Calc 26 mg/dl 09/29/23 04:22
Patient Allergies
adhesive Allergy (Verified 03/13/21 11:51)
SKIN TEARS
chlorhexidine [From Hibiclens] Allergy (Verified 03/13/21 12:37)
Rash
Review of Systems
-
History Source: Patient
All other systems: Reviewed and negative
Constitutional: No Symptoms
EENT: No Symptoms Reported
Respiratory: No Symptoms
Cardiac: No Symptoms
Abdomen/GI: No Symptoms
Genitourinary: No Symptoms
Musculoskeletal: No Symptoms
Skin: No Symptoms
Neuro: Speech Problem
Endocrine: No Symptoms
Hematologic / Lymphatic: No Symptoms
Allergy / Immunology: No Symptoms
Physical Exam
-
General: Obese
Eyes: No Ptosis
HEENT: Normocephalic
Neck: No Bruits Bilaterally
Respiratory: Clear to Auscultation
Cardiac: Regular Rhythm
GI: Normal Bowel Sounds
Skin: Unremarkable
Extremities: No Clubbing
Psych: Unremarkable
Extended Neurological Exam
Attention Span & Concentration: Awake, Alert and Interactive
Tremor: Hand Tremor Absent
Involuntary Movement: None
Speech: Other (Normal prosody, fluent speech, a bit slow and dysarthric, repetition comprehension normal)
Cranial Nerve II: Left Eye: Pupillary Reactivity Unremarkable
Cranial Nerve II: Right Eye: Pupillary Reactivity Unremarkable
Cranial Nerves III, IV, : Extraocular Movement: Extraocular Movement Full in all Directions
Muscle Strength, Overall: Full Throughout
Muscle Bulk & Tone: Bulk Unremarkable
Data Reviewed
-
MRI Head: Report Reviewed and Image Reviewed
[2023-09-30 07:50] LABS: Glucose - Point of Care 107 mg/dl (70-99)
[2023-09-30] MEDS: NOVOLOG FLEXPEN-LOW RESISTANCE SC ×3 (07:51→17:44)
[2023-09-30] MEDS: CYMBALTA DELAYED RELEASE 30 MG PO (07:57)
[2023-09-30] MEDS: COLACE 100 MG PO (07:57)
[2023-09-30] MEDS: ASPIR LOW (ENTERIC COATED) 81 MG PO (07:57)
[2023-09-30] MEDS: LOPRESSOR 25 MG PO ×2 (07:57→19:23)
--- NOTE | 2023-09-30 10:53 | PTCARENOTE ---
Pt AOx3, no complaints of pain or discomfort. Heparin gtt infusing per protocol. Independent with ADLs. NPO for label stamper today. VSS. Call ho within reach.
--- NOTE | 2023-09-30 10:58 | CM ---
Reviewed chart. Met with Mrs. Davalos to review discharge plans. She states prior to admission she resides alone in a two story home. She states she has a eleven steps to get to bedroom/full bathroom. She states she has a powder room on the first
floor. She states prior to admission she was indepenent with ambulation and adls. She states she does not have any DME in the home. She states she has a prescription plan and uses [facility]. She states she has has [facility]NA services in the
past. She states she has been in [facility]. after her knee replacements. Will need to see her current functional status to see if she will have any skilled care needs. Medical work-up in progress. The discharge plan is to return home with VNA
Services if indicated when medically stable.
[2023-09-30 12:11] LABS: Glucose - Point of Care 100 mg/dl (70-99)
[2023-09-30 13:15] LABS: APTT 63.3 Sec (23.4-35.0)
[2023-09-30] MEDS: HEPARIN 25000 UNITS/250 ML IV (15:34)
--- NOTE | 2023-09-30 15:41 | W.PN.HOSP.TC ---
Today's Communication/Plan
-
monitor vitals
see plan
cath per cards
hep
add PPI
Assessment / Plan
Assessment / Plan
Gen-AAOx3, NAD, obese, speech much more fluent today
HEENT-NC, AT, anicteric, clear oral mm
Neck-supple
CV-reg, no M, +S1/S2
Lungs-clear B/L
Abd-soft, NT, ND
Ext-no edema
Musculoskeletal-no cyanosis, clubbing
Skin-warm and dry
Neuro-grossly non-focal
Psych-calm, cooperative
STEMI, inferior wall -continue IV heparin. Continue aspirin, beta-blockade. Troponin trending down. Cardiology following. Await echocardiogram. Timing of catheterization per cardiology.
Dysarthria/staccato speech -concern for stroke. Patient states symptoms started approximately 10 AM on Saturday. Speech much more fluent today and patient states back to normal. Brain MRI neg for CVA. Neurology following. CTA head and neck
without significant pathology.
LATRELL -creatinine 1.2 today, improving. Perhaps due to recent sulfamethoxazole exposure, volume depletion. Hold further antibiotics. Hold lisinopril, Celebrex.
Acute gastroenteritis -nausea and diarrhea since yesterday morning. Recent course of antibiotics,cdiff neg; other stool studies pending.
Overactive bladder -received Botox injection last week by Dr. Barrett. Started on empiric Bactrim prior to admission. Urinalysis shows pyuria, she has no UTI symptoms.
DM2 with hyperglycemia -diet controlled diabetes. hemoglobin A1c 5.7. Low resistance NovoLog scale.
Essential hypertension -hold amlodipine for hypotension.
Hyperlipidemia -she is on simvastatin at home, will change to atorvastatin.
Chronic normocytic anemia -Monitor for now.
Obesity due to excess calories
Full code
Anticipated Discharge: > 48 hours
Subjective/Interval History
-
Date of Service: September 30, 2023
denies pain
Objective Data
-
Labs:
Laboratory Results
09/30/23 09/30/23 09/30/23
06:12 12:55 19:40
APTT 124.0 H 63.3 H Pending
Vital Signs:
Vital Signs
Temp Pulse Resp BP Pulse Ox
98.6 F 59 18 141/53 97
09/30/23 15:30 09/30/23 15:30 09/30/23 15:30 09/30/23 11:09 09/30/23 15:30
I&O
09/29/23 09/30/23 10/01/23
06:59 06:59 06:59
Intake Total 1200 / 1200 0 / 0
Output Total 100 / 100 1100 / 1100
Balance 1200 / 1200 2029 -1100 / -1100
--- NOTE | 2023-09-30 15:46 | PTCARENOTE ---
Pt left for fence laborer. heparin gtt stopped. Report given to Melissa BYRD.
[2023-09-30 16:48] LABS: ACT-LR - POC 247 Seconds (116-155)
--- NOTE | 2023-09-30 17:15 | PTCARENOTE ---
Received pt from labor custodian. Right radial site CDI. VSS. No complaints of pain or discomfort. Educated on right wrist restrictions. Call vic martin.
--- NOTE | 2023-09-30 17:17 | ITS.CL.CATH ---
[facility]ise Manager - Catheterization
Cardiac Catheterization
Procedure Report:
LEFT HEART CATHETERIZATION
Date of Procedure: September 30, 2023
Referring: Huy Reeves
PROCEDURES:
1. Left heart catheterization, coronary angiogram.
2. Ultrasound-guided access
3. Functional physiologic assessment with IFR of proximal to mid LAD.
INDICATION: Cheryl Is a 83-year-old female with past medical history of hypertension, hyperlipidemia, gde-oilmmvw-haaxlzubc type 2 diabetes, fibromyalgia, moderate aortic stenosis who presents with with complaints of neck and back discomfort
associated with some nausea and diaphoresis found to have an aborted inferior ST elevation IL with ST changes resolved on most recent EKG along with symptoms. Her troponin peaked at 6 and she is now being referred for left heart catheterization
ACCESS: Right radial artery
HEMODYNAMICS : (mmHg)
AO (s/d) : 100
LV (s/d) : 145/6
LVEDP : 12
CORONARY FINDINGS: Calcified coronary arteries
DOMINANCE: Right
LEFT MAIN: Left main artery is a large-caliber vessel which gives rise to the left anterior descending artery and the left circumflex artery. There is mild diffuse atherosclerotic plaque.
LEFT ANTERIOR DESCENDING: Left anterior descending artery is a large-caliber vessel, moderately calcified and gives rise to 1 major large caliber diagonal branch as it courses through the anterior interventricular groove towards the apex. There is
tapering noted in the proximal LAD with diffuse calcified plaque in the mildly tortuous vessel in the proximal to mid portion. iFR was found to be abnormal at 0.89. Ostial diagonal branch has a focal eccentric 80% stenosis
CIRCUMFLEX: The left circumflex artery is a medium to large caliber vessel which gives rise to 1 major obtuse marginal branch and multiple small left posterolateral branches. There is diffuse 40% calcified stenosis in the proximal portion and mild
diffuse disease in the distal left circumflex artery.
RIGHT CORONARY ARTERY: The right coronary artery is a large-caliber, moderately calcified dominant artery which gives rise to right posterior descending artery and a small right posterolateral system. There is a hazy 80 to 85% proximal RCA stenosis
which is likely culprit of presenting acute coronary syndrome. There is diffuse up to 50% disease in the mid RCA. STEPHANIE 3 flow is noted.
HEMODYNAMIC ASSESSMENT OF THE Proximal to mid LAD WITH A VOLCANO OMNI WIRE: The origin of the LCA was cannulated with a 6 Fr JL3.5 guide catheter. Intravenous heparin was administered and the ACT was followed during the procedure. Two hundred
micrograms of intracoronary nitroglycerin was given through the guide catheter. A [place] Omni wire was advanced to the guide catheter tip and normalized in the left main. The Omni wire was then carefully manipulated across the stenosis in the
proximal to mid LAD with the iFR below the ischemic threshold serially measuring 0.89 x 3. The Omni wire was then pulled back to the left main where the Pd/Pa measured 1.0 confirming no baseline drift in pressure readings.
SEDATION: 43 minutes of procedural sedation was utilized. An independent medical staff physician was present to assist with and help manage the patient's level of consciousness and physiologic status.
RADIATION SUMMARY: Fluoro Time (min): 6.2, Dose (mGy): 384.5, DAP (Gy.cm2) : 28.5
Closure Device: Vascular band over right radial artery, 8 cc of air
CONCLUSIONS
1. IFR positive proximal to mid LAD diffuse calcified disease 0.89.
2. 80% focal eccentric ostial diagonal stenosis which is a large-caliber vessel.
3. Hazy 80 to 85% proximal RCA stenosis, likely culprit of presenting acute coronary syndrome
4. Moderate aortic stenosis with a mean invasive gradient of 36 mmHg.
5. Mildly elevated LVEDP.
RECOMMENDATIONS
1. Proximal to mid LAD in the setting of known diabetes with at least two-vessel coronary artery disease involving the proximal RCA, proximal to mid LAD at the level of the takeoff of a large caliber diagonal branch and moderate aortic stenosis, CT
surgery has been consulted for a heart team discussion in regards to percutaneous approach versus appropriateness of open heart surgery to address both.
2. We will recheck an echocardiogram to reassess biventricular function.
3. Aggressive management of cardiovascular risk factors.
4. Eventual referral for cardiac rehab
Copy to: Huy Reeves, Raz Kendall
Ligia Saldana MD, FAC, [facility]
[2023-09-30] MEDS: PROTONIX IV 40 MG IV (17:30)
[2023-09-30] MEDS: NSS (PRESERVATIVE FREE) 10 ML IV (17:30)
[2023-09-30] MEDS: CYMBALTA DELAYED RELEASE 60 MG PO (17:31)
[2023-09-30] MEDS: LIPITOR 40 MG PO (17:31)
--- NOTE | 2023-09-30 17:33 | CONSULT.CT ---
Consultation
-
Date/Time Consultation Requested: 09/30/231714
Date/Time Consultation Performed: 09/30/231744
Requesting Provider: Dr. Saldana
Performing Provider: Chelsea TORRES for Dr. Vidal GONZALES
Reason for Consultation: CABG evaluation
Patient History
Physicians
Family Physician: Nyla Bundy DO
Outpatient Electronic Device Repairer: Suad GONZALES
Inpatient Electronic Device Repairer: Les GONZALES
History of Present Illness
83-year-old female with past medical history significant for hypertension, HLD, non-insulin dependent diabetes, moderate aortic stenosis, breast cancer s/p mastectomy presented to [facility] on 09/27 for complaints of sudden onset of
weakness, epigastric pain, swelling, and nausea. She stated prior to that she was in her usual state of health and was walking 1.7 miles a day. The weakness was so profound that she was unable to miner pick the phone to call 911. While en route to
[facility] EKG showed an inferior ST elevation with reciprocal lateral depressions, at that time she did not complain of any chest pain however she did complain of shoulder pain. Patient was not taken to the cardiac Tape Recorder Repairer because EKG
changes resolved, started on a heparin infusion, and troponins were trended and peaked at 6.3. Patient was taken to the cardiac Tape Recorder Repairer today and was found to have multivessel disease. Due to the patient's multiple comorbidities, CT surgery was
consulted to evaluate for surgical candidacy.
Of note, patient was found to have a acute kidney injury. Her baseline creatinine back in April 2023 was 0.8 and was 1.7 upon arrival to the emergency room. Creatinine is trending down currently. Patient was also noted to have some dysarthria
and patient was taken to CAT scan and MRI both which did not show any acute cerebral abnormalities and were likely related to electrolyte abnormalities. Neurology is following.
Past Medical History
Past Medical History: Other
Cervical spine stenosis
Diverticulosis
GERD
Esophagitis
Duodenal ulcer
Hyperlipidemia
Diet controlled DM 2
Essential hypertension
Colon polyps
Breast cancer
Moderate aortic stenosis
Fibromyalgia
Nat Nat skin disorder
Past Surgical History
Past Surgical History: Other
Gastric bypass surgery 1997
Cholecystectomy
Bilateral knee replacement
Right shoulder replacement
Left mastectomy 2008
L2-L5 laminectomy
Mid urethral sling 2020
Family History
Mother: at Age (98)
Father: at Age (67)
Family Medical History: CAD
Social History
Alcohol: Occasional
Drug: None
Tobacco: Non-Smoker
Living: Alone
Allergies
Allergy/AdvReac Type Severity Reaction Status Date / Time
adhesive Allergy SKIN TEARS Verified 03/13/21 11:51
chlorhexidine Allergy Rash Verified 03/13/21 12:37
[From [facility]]
Home Medications
�Medication �Instructions �Recorded �Confirmed �Type
amlodipine 5 mg tablet 5 mg PO DAILY 03/25/17 09/28/23 History
celecoxib 200 mg capsule 200 mg PO DAILY 03/25/17 09/28/23 History
duloxetine 30 mg capsule,delayed 30 mg PO DAILY 03/25/17 09/28/23 History
release
omeprazole 20 mg capsule,delayed 20 mg PO Q72H 03/25/17 09/28/23 History
release
tramadol 50 mg tablet 50 mg PO HS 03/25/17 09/28/23 History
Turmeric W/ Black Pepper Extra 1 tab PO HS 03/09/21 09/28/23 History
Vitamin B Complex 1,200 units sublingual SA 03/09/21 09/28/23 History
ixrrlgq-yix-oty V7-D2-ypooagol 250 1 ea PO DAILY 03/09/21 09/28/23 History
mg-40 mg-5 mg-125 unit tablet
(Calcium Citrate Plus (pyridoxine))
docusate sodium 100 mg capsule 100 mg PO DAILY 03/09/21 09/28/23 History
duloxetine 60 mg capsule,delayed 60 mg PO QPM 03/09/21 09/28/23 History
release
gabapentin 300 mg capsule 300 mg PO HS 03/09/21 09/28/23 History
multivitamin (One Daily Essential 1 ea PO DAILY 03/13/21 09/28/23 History
tablet)
cholecalciferol (vitamin D3) 25 50 mcg PO DAILY 09/28/23 09/28/23 History
mcg (1,000 unit) tablet (Vitamin
D3)
lisinopril 40 mg tablet 40 mg PO DAILY 09/28/23 09/28/23 History
simvastatin 10 mg tablet 10 mg PO HS 09/28/23 09/28/23 History
Review of Systems
-
History Source: Patient
General: Reports No Symptoms
HEENT: Reports Other (slowed speech)
Respiratory: Reports No Symptoms
Cardiac: Reports No Symptoms
Abdomen/GI: Reports Abdominal Pain
: Reports No Symptoms
Musculoskeletal: Reports No Symptoms
Skin: Reports Rash
Neurological: Reports No Symptoms
Physical Exam
Vital Signs
Temp 98.6 F 09/30/23 15:30
Temp route: Oral 09/30/23 08:05
Pulse 59 09/30/23 15:30
Rhythm: Normal sinus rhythm 09/30/23 08:23
Resp Rate 18 09/30/23 15:30
Blood pressure 141/53 09/30/23 11:09
Blood pressure extremity used: Right upper arm 09/29/23 22:52
Position: Lying 09/29/23 22:52
MAP (cuff-Janee Monitor) 80 09/30/23 11:09
MAP 82 09/28/23 16:00
SaO2 97 09/30/23 15:30
Oxygen Mode of Delivery Room air 09/30/23 15:30
Can the patient verbally communicate their pain? Yes 09/29/23 20:33
Pain scale ratin 09/29/23 20:33
Actual Weight 80.1 kg 09/30/23 06:00
Body Mass Index (BMI) 35.7 09/30/23 06:00
Labs
09/30/23 01:44
PT 14.1 Sec (11.4-14.6) 09/28/23 12:29
APTT 63.3 Sec (23.4-35.0) H 09/30/23 12:55
Hemoglobin A1c 5.7 % (4.0-5.6) H 09/29/23 04:22
Troponin I 6.010 ng/ml H* 09/29/23 04:22
Urinalysis
Urine Color Yellow 09/28/23 23:38
Urine Clarity Slightly cloudy (Clear) 09/28/23 23:38
Urine pH 5.0 (5.0-9.0) 09/28/23 23:38
Ur Specific [employer] 1.010 (<1.030) 09/28/23 23:38
Urine Ketones Negative (Negative) 09/28/23 23:38
Urine Occult Blood Negative (Negative) 09/28/23 23:38
Urine Bilirubin 1+ (Negative) A 09/28/23 23:38
Ur Leukocyte Esterase Trace (Negative) A 09/28/23 23:38
Urine RBC 0-2 /HPF (0-2) 09/28/23 23:38
Urine WBC 26-30 /HPF (0-5) A 09/28/23 23:38
Ur Squamous Epith Cells >30 /LPF (Few) 09/28/23 23:38
Urine Glucose Negative (Negative) 09/28/23 23:38
Urine Albumin Negative (Neg - Trace) 09/28/23 23:38
Exam
General: Well Developed, Well Nourished and Comfortable
HEENT: Normocephalic
Respiratory: Clear
Cardiac: S1/S2 and Regular Rhythm
GI: Soft and Non Tender
Skin: Warm and Dry
Neuro: AO x 3 and Other (delayed speech)
Extremities: Pulses (+1)
Lymph: No Lymphadenopathy
Psych: Calm
Assessment / Plan
-
83-year-old female with past medical history listed above presented with acute onset of epigastric pain and EKG changes. She was also found to have a LATRELL and delayed speech. Today she was taken to the cardiac Tape Recorder Repairer in which multivessel disease
was found. CT surgery was consulted for surgical candidacy evaluation.
#CAD
-Patient's case will be discussed with attending physician. Further details regarding surgical timing intervention will be determined after attending physicians full evaluation
-Routine preoperative cardiothoracic surgery orders will be initiated.
-STS risk stratification score will be calculated after preoperative testing is complete
-Continue nitroglycerin and heparin gtt per cardiology
[2023-09-30 17:44] LABS: Glucose - Point of Care 103 mg/dl (70-99)
[2023-09-30 21:28] LABS: Glucose - Point of Care 119 mg/dl (70-99)
[2023-09-30] MEDS: NEURONTIN 300 MG PO (21:42)
[2023-09-30] MEDS: ULTRAM 50 MG PO (21:42)
--- NOTE | 2023-09-30 21:55 | PTCARENOTE ---
Pt rec'd at change of shift awake, alert having loose brown stool x 2. right radial band removed without active bleeding. area above and below puncture site is ecchymotic but soft,+ pulse.
Heparin continued at 1000 units/hr. call ho within reach.
--- NOTE | 2023-09-30 23:23 | PTCARENOTE ---
Pt with low tolerance of pain; crying when tourniquet placed for blood draw and peripheral site pulled after noted to be leaking. Emotional support provided.
[2023-09-30 23:39] LABS: APTT 113.3 Sec (23.4-35.0)
[2023-10-01] VITALS (8 sets, daily range): BP systolic 118–162; BP diastolic 50–78
[2023-10-01 05:31] LABS: % Basophils 0.2 % (0-2); % Eosinophils 3.2 % (0-6); % Immature Granulocytes 0.4 % (0-0.5); % Lymphocytes 16.9 % (20.5-51.1); % Monocytes 6.9 % (1.7-9.3); % Neutrophils 72.4 % (42.2-75.2); Absolute Eosinophils 0.3 10^3/uL (0-0.7); Absolute Lymphocytes 1.4 10^3/uL (1.2-3.4); Absolute Monocytes 0.6 10^3/uL (0.1-0.6); Absolute Neutrophils 5.9 10^3/uL (1.4-6.5); Hematocrit 31.3 % (37.0-47.0); Mean Corp Hgb Conc. 31.9 g/dL (33.0-37.0); Mean Corpuscular Hgb 28.2 pg (27.0-31.0); Mean Corpuscular Volume 88.2 fL (81.0-99.0); Mean Platelet Volume 10.2 fL (7.4-10.4); Nucleated Red Blood Cells % 0 %; Platelet Count 218 10^3/uL (130-400); Red Blood Cell Count 3.55 10^6/uL (4.20-5.40); Red Cell Dist. Width 15.5 % (11.5-14.5); White Blood Cell Count 8.2 10^3/uL (4.8-10.8)
[2023-10-01 05:43] LABS: APTT 80.8 Sec (23.4-35.0)
[2023-10-01 05:56] LABS: Blood Urea Nitrogen 20 mg/dl (7-17); Carbon Dioxide 22 mmol/L (22-30); Chloride 111 mmol/L (98-107); Estimated Creatinine Clearance 45 ml/min; Glucose 84 mg/dl (70-99); Potassium 4.4 mmol/L (3.5-5.1); Sodium 140 mmol/L (135-145); eGFR > 60.00
[2023-10-01 07:14] LABS: Glucose - Point of Care 109 mg/dl (70-99)
[2023-10-01] MEDS: NOVOLOG FLEXPEN-LOW RESISTANCE SC ×3 (08:15→16:59)
[2023-10-01] MEDS: CYMBALTA DELAYED RELEASE 30 MG PO (08:16)
[2023-10-01] MEDS: LOPRESSOR 25 MG PO ×2 (08:16→20:22)
[2023-10-01] MEDS: ASPIR LOW (ENTERIC COATED) 81 MG PO (08:16)
[2023-10-01] MEDS: COLACE PO (08:17)
[2023-10-01] MEDS: NSS (PRESERVATIVE FREE) 10 ML IV (08:17)
[2023-10-01] MEDS: PROTONIX IV 40 MG IV (08:17)
[2023-10-01 11:52] LABS: Glucose - Point of Care 107 mg/dl (70-99)
--- NOTE | 2023-10-01 13:12 | W.PN.HOSP.TC ---
Today's Communication/Plan
-
Monitor vitals
see plan
CT surgery following
Preop imaging
Continue with PPI
cw hep gtt per cardiology
Assessment / Plan
Assessment / Plan
Gen-AAOx3, NAD, obese, speech much more fluent today
HEENT-NC, AT, anicteric, clear oral mm
Neck-supple
CV-reg, no M, +S1/S2
Lungs-clear B/L
Abd-soft, NT, ND
Ext-no edema
Musculoskeletal-no cyanosis, clubbing
Skin-warm and dry
Neuro-grossly non-focal
Psych-calm, cooperative
STEMI, inferior wall -continue IV heparin. Continue aspirin, beta-blockade. Troponin trending down. Cardiology following. s/p cath 09/[address] surgery consulted. preop imaging per CTS
Echo with EF 60 to 65%, stage II diastolic dysfunction. Moderate to severe aortic stenosis
Dysarthria/staccato speech -concern for stroke. Patient states symptoms started approximately 10 AM on Saturday. Speech much more fluent today and patient states back to normal. Brain MRI neg for CVA. Neurology following. CTA head and neck
without significant pathology.
LATRELL -resolved. Perhaps due to recent sulfamethoxazole exposure, volume depletion. Hold further antibiotics. Hold lisinopril, Celebrex.
Acute gastroenteritis -nausea and diarrhea since yesterday morning. Recent course of antibiotics,cdiff neg
Overactive bladder -received Botox injection last week by Dr. Barrett. Started on empiric Bactrim prior to admission. Urinalysis shows pyuria, she has no UTI symptoms.
DM2 with hyperglycemia -diet controlled diabetes. hemoglobin A1c 5.7. Low resistance NovoLog scale.
Essential hypertension -hold amlodipine for hypotension.
Hyperlipidemia -she is on simvastatin at home, will change to atorvastatin.
Chronic normocytic anemia -Monitor for now.
Obesity due to excess calories
Full code
Anticipated Discharge: > 48 hours
Subjective/Interval History
-
Date of Service: October 01, 2023
denies pain
Objective Data
-
Labs:
Laboratory Results
10/01/23 10/01/23
05:14 12:44
WBC 8.2
Hgb 10.0 L
Hct 31.3 L
Plt Count 218
APTT 80.8 H Pending
Sodium 140
Potassium 4.4
Chloride 111 H
Carbon Dioxide 22
BUN 20 H
Creatinine 0.9
Glucose 84
Calcium 9.0
Vital Signs:
Vital Signs
Temp Pulse Resp BP Pulse Ox
98.7 F 55 18 135/65 97
10/01/23 11:13 10/01/23 11:15 10/01/23 11:13 10/01/23 11:15 10/01/23 11:13
I&O
09/30/23 10/01/23 10/02/23
06:59 06:59 06:59
Intake Total 2130 / 2130 240 / 240
Output Total 100 / 100 1300 / 1300 250 / 250
Balance 2029 -1300 / -1300 -10 / -10
[2023-10-01 13:18] LABS: APTT 51.1 Sec (23.4-35.0)
--- NOTE | 2023-10-01 16:32 | W.PN.CARDCBS ---
Today's Communication / Plan
-
Stop heparin. Continue aspirin, metoprolol, atorvastatin.
Will discuss with valve team plans regarding aortic stenosis and severe coronary artery disease
Impression / Plan
-
Assess:
Epigastric pain, nausea, sweats
Inferior ST elevation which has resolved
Acute renal failure with creatinine of 1.7 (baseline normal)
moderate aortic stenosis
Hypertension
Hyperlipidemia
Mue-oqwomkk-ybpfsvxcx diabetes
History of breast cancer status postmastectomy 2008
Fibromyalgia
History of duodenal ulcer/GERD
Anemia
Recent UTI status post Bactrim treatment
Echo 12/19: LVEF 65%, moderate aortic stenosis with mean gradient of 31, aortic valve area 1.3, mild TR with PA pressure 48
cath 09/29/23: Proximal LAD lesion, 80% diagonal, 80 to 85% proximal RCA, mean aortic gradient 36
Echo 09/30/23: EF 60 to 65%, mean gradient 35, aortic valve area 0.9, dimensionless 0.3, mild MR
Plan:
Cath and echo results reviewed. Will discuss case with CT surgery and valve team.
Plans would be either for AVR/CABG, or PCI followed by transcatheter aortic valve replacement.
Okay to stop heparin.
Continue aspirin, metoprolol, atorvastatin.
If creatinine remains stable we will restart lisinopril. I suspect this was due to recent treatment of UTI with Bactrim
Progress Note - Financial Reporting Accountant
Subjective
Date of Service: October 01, 2023
Denies chest pains or shortness of breath.
Objective
Labs:
10/01/23 05:14
10/01/23 05:14
Labs
Hgb 10.0 g/dL (12.0-16.0) L 10/01/23 05:14
Hct 31.3 % (37.0-47.0) L 10/01/23 05:14
Plt Count 218 10^3/uL (130-400) 10/01/23 05:14
PT 14.1 Sec (11.4-14.6) 09/28/23 12:29
INR 1.11 09/28/23 12:29
APTT 51.1 Sec (23.4-35.0) H 10/01/23 12:44
Sodium 140 mmol/L (135-145) 10/01/23 05:14
Potassium 4.4 mmol/L (3.5-5.1) 10/01/23 05:14
BUN 20 mg/dl (7-17) H 10/01/23 05:14
Creatinine 0.9 mg/dL (0.6-1.0) 10/01/23 05:14
Glucose 84 mg/dl (70-99) 10/01/23 05:14
Troponins
09/28/23 09/28/23 09/29/23
18:13 23:57 04:22
Troponin I 1.750 H* D 6.300 H* D 6.010 H*
Vital Signs and I&O:
Vital Signs
Temp Pulse Resp BP Pulse Ox
98.1 F 65 16 135/65 100
10/01/23 16:01 10/01/23 16:01 10/01/23 16:01 10/01/23 11:15 10/01/23 16:01
Vital Signs
Temp Pulse Resp BP Pulse Ox
98.1 F 65 16 135/65 100
10/01/23 16:01 10/01/23 16:01 10/01/23 16:01 10/01/23 11:15 10/01/23 16:01
Intake & Output
09/29/23 09/30/23 10/01/23 10/02/23
06:59 06:59 06:59 06:59
Intake Total 1200 / 1200 2130 / 2130 1040 / 1040
Output Total 100 / 100 1300 / 1300 250 / 250
Balance 1200 / 1200 2029 / 2029 -1300 / -1300 790 / 790
Physical Exam
Physical Exam
GEN: No distress, awake, Ox3
HEENT: supple, anicteric, mmm
LUNGS: CTA, no wheezes/rales
CV: Reg, S1/S2, 3/6 syst LSB, no gallop
ABD: soft, BS+, NT/ND
EXT: No edema
NEURO: Gross non-focal
SKIN: No rash
[2023-10-01 16:52] LABS: Glucose - Point of Care 128 mg/dl (70-99)
[2023-10-01] MEDS: CYMBALTA DELAYED RELEASE 60 MG PO (16:59)
[2023-10-01] MEDS: LIPITOR 40 MG PO (16:59)
[2023-10-01 22:04] LABS: Glucose - Point of Care 115 mg/dl (70-99)
[2023-10-01] MEDS: ULTRAM 50 MG PO (22:07)
[2023-10-01] MEDS: NEURONTIN 300 MG PO (22:08)
--- NOTE | 2023-10-01 22:43 | PTCARENOTE ---
Pt rec'd at change of shift in bed with son at bedside. Sinus on telemetry with + murmur . Right radial site remains ecchymotic but soft.
[2023-10-02] VITALS (7 sets, daily range): BP systolic 118–168; BP diastolic 57–67
[2023-10-02 06:24] LABS: % Basophils 0.5 % (0-2); % Eosinophils 4.1 % (0-6); % Immature Granulocytes 1.2 % (0-0.5); % Lymphocytes 25.2 % (20.5-51.1); % Monocytes 8.2 % (1.7-9.3); % Neutrophils 60.8 % (42.2-75.2); Absolute Eosinophils 0.3 10^3/uL (0-0.7); Absolute Immature Granulocytes 0.1 10^3/uL (0-0.05); Absolute Lymphocytes 1.5 10^3/uL (1.2-3.4); Absolute Monocytes 0.5 10^3/uL (0.1-0.6); Absolute Neutrophils 3.7 10^3/uL (1.4-6.5); Hematocrit 34.2 % (37.0-47.0); Hemoglobin 10.9 g/dL (12.0-16.0); Mean Corp Hgb Conc. 31.9 g/dL (33.0-37.0); Mean Corpuscular Hgb 28.1 pg (27.0-31.0); Mean Corpuscular Volume 88.1 fL (81.0-99.0); Nucleated Red Blood Cells % 0 %; Platelet Count 253 10^3/uL (130-400); Red Blood Cell Count 3.88 10^6/uL (4.20-5.40); Red Cell Dist. Width 15.5 % (11.5-14.5); White Blood Cell Count 6.1 10^3/uL (4.8-10.8)
[2023-10-02 06:27] LABS: INR 1.07; PT 13.7 Sec (11.4-14.6)
[2023-10-02 06:47] LABS: ALT (SGPT) 24 U/L (0-35); AST (SGOT) 30 U/L (14-36); Albumin 3.7 g/dl (3.5-5.0); Alkaline Phosphatase 49 U/L (38-126); Blood Urea Nitrogen 17 mg/dl (7-17); Calcium 9.2 mg/dl (8.4-10.2); Carbon Dioxide 24 mmol/L (22-30); Chloride 111 mmol/L (98-107); Direct Bilirubin 0.2 mg/dl (0.0-0.4); Estimated Creatinine Clearance 50 ml/min; Glucose 100 mg/dl (70-99); Potassium 4.7 mmol/L (3.5-5.1); Sodium 142 mmol/L (135-145); Total Bilirubin 0.4 mg/dl (0.2-1.3); Total Protein 6.1 g/dl (6.3-8.2); eGFR > 60.00
[2023-10-02 07:14] LABS: Glucose - Point of Care 100 mg/dl (70-99)
[2023-10-02] MEDS: NOVOLOG FLEXPEN-LOW RESISTANCE SC ×3 (08:24→17:15)
[2023-10-02] MEDS: PROTONIX IV 40 MG IV (08:25)
[2023-10-02] MEDS: ASPIR LOW (ENTERIC COATED) 81 MG PO (08:26)
[2023-10-02] MEDS: CYMBALTA DELAYED RELEASE 30 MG PO (08:26)
[2023-10-02] MEDS: LOPRESSOR 25 MG PO ×2 (08:26→20:06)
[2023-10-02] MEDS: COLACE 100 MG PO (08:46)
[2023-10-02] MEDS: NSS (PRESERVATIVE FREE) 10 ML IV (08:46)
[2023-10-02 11:54] LABS: Glucose - Point of Care 89 mg/dl (70-99)
--- NOTE | 2023-10-02 12:54 | W.PN.HOSP.TC ---
Today's Communication/Plan
-
Monitor vital signs and see plan
CT surgery and cardiology to see today
Continue with metoprolol, aspirin
Assessment / Plan
Assessment / Plan
Gen-AAOx3, NAD, obese, speech much more fluent today
HEENT-NC, AT, anicteric, clear oral mm
Neck-supple
CV-reg, no M, +S1/S2
Lungs-clear B/L
Abd-soft, NT, ND
Ext-no edema
Musculoskeletal-no cyanosis, clubbing
Skin-warm and dry
Neuro-grossly non-focal
Psych-calm, cooperative
STEMI, inferior wall -finished hep. Continue aspirin, beta-blockade. Troponin trending down. Cardiology following. s/p cath 09/[address] CT surgery consulted. preop imaging per CTS
Echo with EF 60 to 65%, stage II diastolic dysfunction. Moderate to severe aortic stenosis
Dysarthria/staccato speech -concern for stroke. Patient states symptoms started approximately 10 AM on Saturday. Speech much more fluent today and patient states back to normal. Brain MRI neg for CVA. Neurology following. CTA head and neck
without significant pathology.
LATRELL -resolved. Perhaps due to recent sulfamethoxazole exposure, volume depletion. Hold further antibiotics. Hold lisinopril, Celebrex.
Acute gastroenteritis -nausea and diarrhea since yesterday morning. Recent course of antibiotics,cdiff neg
Overactive bladder -received Botox injection last week by Dr. Barrett. Started on empiric Bactrim prior to admission. Urinalysis shows pyuria, she has no UTI symptoms.
DM2 with hyperglycemia -diet controlled diabetes. hemoglobin A1c 5.7. Low resistance NovoLog scale.
Essential hypertension -hold amlodipine for hypotension.
Hyperlipidemia -she is on simvastatin at home, will change to atorvastatin.
Chronic normocytic anemia -Monitor for now.
Obesity due to excess calories
Full code
Anticipated Discharge: > 48 hours
Subjective/Interval History
-
Date of Service: October 02, 2023
denies pain
Objective Data
-
Labs:
Laboratory Results
10/02/23
06:03
WBC 6.1
Hgb 10.9 L
Hct 34.2 L
Plt Count 253
PT 13.7
INR 1.07
Sodium 142
Potassium 4.7
Chloride 111 H
Carbon Dioxide 24
BUN 17
Creatinine 0.8
Glucose 100 H
Calcium 9.2
Total Bilirubin 0.4
AST 30
ALT 24
Alkaline Phosphatase 49
Vital Signs:
Vital Signs
Temp Pulse Resp BP Pulse Ox
98.5 F 61 18 126/58 97
10/02/23 11:27 10/02/23 11:48 10/02/23 11:27 10/02/23 11:29 10/02/23 11:27
I&O
10/01/23 10/02/23 10/03/23
06:59 06:59 06:59
Intake Total 1520 / 1520
Output Total 1300 / 1300 1000 / 1000
Balance -1300 / -1300 520 / 520
--- NOTE | 2023-10-02 13:11 | CM ---
Reviewed chart. Met with Mrs. Davalos to review discharge plans. She is waiting for the test results and medical team decision regarding treatment plans. Prior to admission she resides alone in a two story home. She has eleven steps to get to
bedroom/full bathroom. She has a powder room on the first floor. Prior to admission she was independent with ambulation and adls. She does not have any DME in the home She has a prescription plan and uses [facility]. Will need to see her current
functional level to see if she will have any skilled care needs. Medical work-up in progress. The discharge plan is to return home with [facility] when medically stable.
--- NOTE | 2023-10-02 16:28 | PTCARENOTE ---
Pt complains of right pedal swelling and discomfort. Pt states that she noticed this previously at home. Will monitor.
[2023-10-02 16:42] LABS: Glucose - Point of Care 100 mg/dl (70-99)
[2023-10-02] MEDS: LIPITOR 40 MG PO (17:40)
[2023-10-02] MEDS: CYMBALTA DELAYED RELEASE 60 MG PO (17:40)
--- NOTE | 2023-10-02 17:47 | W.PN.CARDCBS ---
Today's Communication / Plan
-
Cath and echo results reviewed.
Multidisciplinary discussion was had with CT surgery and interventional/structural colleagues--given her advanced age and multiple comorbid conditions, she is deemed to be a better candidate for percutaneous approach. We will plan to proceed with
proximal RCA PCI given presenting NSTEMI in the RCA being the likely culprit. For now our plan will be to medically manage IFR positive LAD disease and reassess as an outpatient and continue to monitor moderate to severe aortic stenosis for any
progression and need for intervention in the future.
Continue aspirin, metoprolol, atorvastatin.
We will plan to load with the second antiplatelet agent. We will have case management look into cost for Brilinta versus Plavix.
Discussed with patient and nursing at bedside
Impression / Plan
-
Assess:
Epigastric pain, nausea, sweats
Inferior ST elevation which has resolved
Acute renal failure with creatinine of 1.7 (baseline normal)
moderate aortic stenosis
Hypertension
Hyperlipidemia
Mmb-hqxbbws-bdkcbovlj diabetes
History of breast cancer status postmastectomy 2008
Fibromyalgia
History of duodenal ulcer/GERD
Anemia
Recent UTI status post Bactrim treatment
Echo 12/19: LVEF 65%, moderate aortic stenosis with mean gradient of 31, aortic valve area 1.3, mild TR with PA pressure 48
cath 09/29/23: Proximal LAD lesion, 80% diagonal, 80 to 85% proximal RCA, mean aortic gradient 36
Echo 09/30/23: EF 60 to 65%, mean gradient 35, aortic valve area 0.9, dimensionless 0.3, mild MR
Plan:
Cath and echo results reviewed.
Multidisciplinary discussion was had with CT surgery and interventional/structural colleagues--given her advanced age and multiple comorbid conditions, she is deemed to be a better candidate for percutaneous approach. We will plan to proceed with
proximal RCA PCI given presenting NSTEMI in the RCA being the likely culprit. For now our plan will be to medically manage IFR positive LAD disease and reassess as an outpatient and continue to monitor moderate to severe aortic stenosis for any
progression and need for intervention in the future.
Continue aspirin, metoprolol, atorvastatin.
We will plan to load with the second antiplatelet agent. We will have case management look into cost for Brilinta versus Plavix.
Discussed with patient and nursing at bedside
Progress Note - Protection Analyst
Subjective
Date of Service: October 02, 2023
Doing well, no major issues. Complains of left foot pain.
Objective
Labs:
10/02/23 06:03
10/02/23 06:03
Labs
Hgb 10.9 g/dL (12.0-16.0) L 10/02/23 06:03
Hct 34.2 % (37.0-47.0) L 10/02/23 06:03
Plt Count 253 10^3/uL (130-400) 10/02/23 06:03
PT 13.7 Sec (11.4-14.6) 10/02/23 06:03
INR 1.07 10/02/23 06:03
APTT Cancelled 10/01/23 19:45
Sodium 142 mmol/L (135-145) 10/02/23 06:03
Potassium 4.7 mmol/L (3.5-5.1) 10/02/23 06:03
BUN 17 mg/dl (7-17) 10/02/23 06:03
Creatinine 0.8 mg/dL (0.6-1.0) 10/02/23 06:03
Glucose 100 mg/dl (70-99) H 10/02/23 06:03
Vital Signs and I&O:
Vital Signs
Temp Pulse Resp BP Pulse Ox
98.5 F 59 16 126/58 98
10/02/23 15:11 10/02/23 15:11 10/02/23 15:11 10/02/23 11:29 10/02/23 15:11
Vital Signs
Temp Pulse Resp BP Pulse Ox
98.5 F 59 16 126/58 98
10/02/23 15:11 10/02/23 15:11 10/02/23 15:11 10/02/23 11:29 10/02/23 15:11
Intake & Output
09/30/23 10/01/23 10/02/23 10/03/23
06:59 06:59 06:59 06:59
Intake Total 2130 / 2130 1520 / 1520
Output Total 100 / 100 1300 / 1300 1000 / 1000
Balance 2029 / 2029 -1300 / -1300 520 / 520
Physical Exam
Physical Exam
GEN: No distress, awake, Ox3
HEENT: supple, anicteric, mmm
LUNGS: CTA, no wheezes/rales
CV: Reg, S1/S2, 3/6 syst LSB, no gallop
ABD: soft, BS+, NT/ND
EXT: No edema
NEURO: Gross non-focal
SKIN: No rash
[2023-10-02] MEDS: BRILINTA 180 MG PO (19:11)
[2023-10-02 22:30] LABS: Glucose - Point of Care 115 mg/dl (70-99)
[2023-10-02] MEDS: NEURONTIN 300 MG PO (22:51)
[2023-10-02] MEDS: ULTRAM 50 MG PO (22:51)
[2023-10-03] VITALS (12 sets, daily range): BP systolic 100–177; BP diastolic 57–143; BMI 34.0
[2023-10-03] MEDS: TYLENOL 650 MG PO (00:09)
[2023-10-03 03:13] LABS: % Basophils 0.7 % (0-2); % Eosinophils 4.1 % (0-6); % Immature Granulocytes 1.8 % (0-0.5); % Lymphocytes 20.9 % (20.5-51.1); % Monocytes 7.3 % (1.7-9.3); % Neutrophils 65.2 % (42.2-75.2); Absolute Basophils 0.1 10^3/uL (0-0.2); Absolute Eosinophils 0.3 10^3/uL (0-0.7); Absolute Immature Granulocytes 0.1 10^3/uL (0-0.05); Absolute Lymphocytes 1.6 10^3/uL (1.2-3.4); Absolute Monocytes 0.6 10^3/uL (0.1-0.6); Hematocrit 33.5 % (37.0-47.0); Hemoglobin 10.9 g/dL (12.0-16.0); Mean Corp Hgb Conc. 32.5 g/dL (33.0-37.0); Mean Corpuscular Hgb 27.9 pg (27.0-31.0); Mean Corpuscular Volume 85.9 fL (81.0-99.0); Mean Platelet Volume 9.7 fL (7.4-10.4); Nucleated Red Blood Cells % 0 %; Platelet Count 256 10^3/uL (130-400); White Blood Cell Count 7.7 10^3/uL (4.8-10.8)
[2023-10-03 03:36] LABS: Blood Urea Nitrogen 27 mg/dl (7-17); Calcium 9.8 mg/dl (8.4-10.2); Carbon Dioxide 21 mmol/L (22-30); Chloride 108 mmol/L (98-107); Estimated Creatinine Clearance 49 ml/min; Glucose 115 mg/dl (70-99); Potassium 4.2 mmol/L (3.5-5.1); Sodium 138 mmol/L (135-145); eGFR > 60.00
[2023-10-03 08:08] LABS: Glucose - Point of Care 97 mg/dl (70-99)
[2023-10-03] MEDS: NOVOLOG FLEXPEN-LOW RESISTANCE SC ×3 (08:37→17:43)
[2023-10-03] MEDS: BRILINTA 90 MG PO ×2 (08:51→20:02)
[2023-10-03] MEDS: LOPRESSOR 25 MG PO ×2 (08:51→20:02)
[2023-10-03] MEDS: ASPIR LOW (ENTERIC COATED) 81 MG PO (08:51)
[2023-10-03] MEDS: NSS (PRESERVATIVE FREE) 10 ML IV (08:51)
[2023-10-03] MEDS: PROTONIX IV 40 MG IV (08:52)
[2023-10-03] MEDS: COLACE 100 MG PO (08:59)
[2023-10-03] MEDS: CYMBALTA DELAYED RELEASE 30 MG PO (08:59)
--- NOTE | 2023-10-03 10:36 | CM ---
Reviewed chart, Met with Mrs. Davalos to review discharge plans. Telephone call to [facility] to check co-pay for Brilinta 90 mg bid. Her co-pay would be $30.00 a month. Met with Mrs. Davalos to review co-pay. She states she gets some of her
medications from the [facility]. Telephone call to the [employer] [facility] to see if they would cover Brilinta. Left message. Placed the one month free Brilinta coupon in his red discharge folder. Prior to admission she resides alone in a two story
home. She has eleven steps to get to bedroom/full bathroom. She has a powder room on the first floor. She has a prescription plan and uses [facility]. Medical work-up in progress. The discharge plan is to return home when medically stable.
[2023-10-03 11:56] LABS: Glucose - Point of Care 89 mg/dl (70-99)
--- NOTE | 2023-10-03 12:09 | PTCARENOTE ---
Pt AOx3, no complaints of pain or discomfort. NPO for cardiac cath today. Blood sugars monitored, given 4oz of juice for sugar of 89, ok per Julissa Hadley NP. VSS. NSR on tele monitor. Call ho within reach.
--- NOTE | 2023-10-03 13:28 | W.PN.HOSP.TC ---
Today's Communication/Plan
-
monitor vital signs and see plan
Plan for PCI today
Aspirin and Brilinta
Assessment / Plan
Assessment / Plan
Gen-AAOx3, NAD, obese, speech much more fluent today
HEENT-NC, AT, anicteric, clear oral mm
Neck-supple
CV-reg, no M, +S1/S2
Lungs-clear B/L
Abd-soft, NT, ND
Ext-no edema
Musculoskeletal-no cyanosis, clubbing
Skin-warm and dry
Neuro-grossly non-focal
Psych-calm, cooperative
STEMI, inferior wall -finished hep. Continue aspirin, beta-blockade. Troponin trending down. Cardiology following. s/p cath 09/[address] surgery consulted. preop imaging per CTS. appears now pain plan for percutaneous
approach given patient advanced age and multiple comorbid conditions. Plan for proximal RCA PCI 10/03/2023. Regarding LAD, will be managed medically.
Echo with EF 60 to 65%, stage II diastolic dysfunction. Moderate to severe aortic stenosis
On aspirin and Brilinta
Dysarthria/staccato speech -concern for stroke. Patient states symptoms started approximately 10 AM on Saturday. Speech much more fluent today and patient states back to normal. Brain MRI neg for CVA. Neurology following. CTA head and neck
without significant pathology.
LATRELL -resolved. Perhaps due to recent sulfamethoxazole exposure, volume depletion. Hold further antibiotics. Hold lisinopril, Celebrex.
Acute gastroenteritis -nausea and diarrhea since yesterday morning. Recent course of antibiotics,cdiff neg
Overactive bladder -received Botox injection last week by Dr. Barrett. Started on empiric Bactrim prior to admission. Urinalysis shows pyuria, she has no UTI symptoms.
DM2 with hyperglycemia -diet controlled diabetes. hemoglobin A1c 5.7. Low resistance NovoLog scale.
Essential hypertension -hold amlodipine for hypotension.
Hyperlipidemia -she is on simvastatin at home, will change to atorvastatin.
Chronic normocytic anemia -Monitor for now.
Obesity due to excess calories
Full code
Anticipated Discharge: Within 24 hours
Subjective/Interval History
-
Date of Service: October 03, 2023
Denies chest pain
Objective Data
-
Labs:
Laboratory Results
10/03/23
03:04
WBC 7.7
Hgb 10.9 L
Hct 33.5 L
Plt Count 256
Sodium 138
Potassium 4.2
Chloride 108 H
Carbon Dioxide 21 L
BUN 27 H
Creatinine 0.8
Glucose 115 H
Calcium 9.8
Vital Signs:
Vital Signs
Temp Pulse Resp BP Pulse Ox
98.2 F 65 20 135/63 96
10/03/23 11:35 10/03/23 11:45 10/03/23 11:35 10/03/23 11:37 10/03/23 11:35
I&O
10/02/23 10/03/23 10/04/23
06:59 06:59 06:59
Intake Total 1520 / 1520
Output Total 1000 / 1000 600 / 600 700 / 700
Balance 520 / 520 -600 / -600 -700 / -700
--- NOTE | 2023-10-03 13:46 | PN.CDI ---
CDI
- -
CDI:
Physician Documentation Request
Admit Date: 09/28/23 15:10
Dear Doctor Jay,
Patient admitted with chest pain.
10/01 Cardiology PN: 'Inferior ST elevation which has resolved...We will plan to proceed with proximal RCA PCI given presenting NSTEMI in the RCA being the likely culprit.'
10/02 Hospitalist PN: 'STEMI, inferior wall -finished hep. Continue aspirin, beta-blockade. Troponin trending down.'
Please clarify the following regarding the documented myocardial infarction
NSTEMI
STEMI
Other
Use of terms such as suspected, likely, concern for, or probable (associated with a specific diagnosis that is being evaluated, monitored, or treated as if it exists) are acceptable and can be coded in the inpatient setting, when documented at the
time of discharge.
Thank you,
Kathy Bradford RN, BSN
CDI Specialist
Available via [facility] text
Please use your independent medical judgment in providing your response.
[2023-10-03 15:18] LABS: Glucose - Point of Care 99 mg/dl (70-99)
--- NOTE | 2023-10-03 15:21 | PTCARENOTE ---
Pt left for dairy lab technician. VSS, blood sugar 99. Report given to RN.
[2023-10-03 16:15] LABS: ACT-LR - POC 266 Seconds (116-155)
--- NOTE | 2023-10-03 17:23 | ITS.CL.CATH ---
National Coverage Specialist - Catheterization
Cardiac Catheterization
Procedure Report:
CORONARY INTERVENTION
Date of Procedure: October 03, 2023
Referring: Raz Kendall
PROCEDURES:
1. Selective RCA angiography.
2. Ultrasound-guided access.
3. Successful PCI of a hazy 80 to 85% proximal RCA stenosis with a 3.25 x 15 mm Xience ron point drug-eluting stent, postdilated using a 4.0 x 12 mm NC balloon at 20 asher with an excellent angiographic result.
INDICATION: Cheryl Is a 83-year-old female with past medical history of hypertension, hyperlipidemia, iil-hyulkny-iycktrfgm type 2 diabetes, fibromyalgia, moderate aortic stenosis who presents with with complaints of abdominal pain, neck and back
discomfort associated with some nausea and diaphoresis found to have an aborted inferior ST elevation NM with ST changes resolved on subsequent EKGs with a negative GI and neurologic workup status post diagnostic heart catheterization on September 29,
2023 with significant proximal RCA stenosis who now presents for scheduled PCI. Given her positive LAD disease along with RCA disease and moderate aortic stenosis, she was evaluated by CT surgery and was deemed high risk for CABG/AVR and therefore
our plan is to intervene on the culprit lesion today which is a proximal RCA with plan to medically manage the LAD/diagonal disease and continue to follow moderate to severe aortic stenosis by performing serial surveillance echocardiogram. She was
loaded with 20 mg of Brilinta yesterday evening.
ACCESS: Right radial artery, 6 Kittitian sheath, under ultrasound guidance
HEMODYNAMICS : (mmHg)
AO (s/d) : 141/65
CORONARY FINDINGS: Given recent diagnostic heart catheterization on September 30, 2023, only selective right coronary artery angiography was performed during the study.
RIGHT CORONARY ARTERY: The right coronary artery is a large-caliber, moderately calcified dominant artery which gives rise to right posterior descending artery and a small right posterolateral system. There is a hazy 80 to 85% proximal RCA stenosis
which is likely culprit of presenting acute coronary syndrome. There is diffuse up to 50% disease in the mid RCA. STEPHANIE 3 flow is noted.
CORONARY INTERVENTION: The right coronary artery was selectively engaged using a 6 Kittitian JR4 guide catheter. Additional heparin was given to maintain a therapeutic ACT throughout the case. A 190 cm 0.014' BMW coronary wire was advanced into the
distal RCA. The lesion was predilated using a 3.0 x 12 mm semicompliant balloon at 14 asher initially with some waist eventually with good expansion. We subsequently tried introducing a 3.25 x 15 mm Xience ron point drug-eluting stent however we
were not able to successfully advance due to the angulation of the takeoff of the RCA. The provide additional support regarding a 6 Kittitian guide liner and introduced a guide liner into the proximal RCA over a 3.0 x 12 mm semicompliant balloon.
With the guide liner just past the lesion, we now brought back to 3.25 x 15 mm Xience ron point drug-eluting stent and and sheath the stent with successful deployment in the proximal vessel. The stent was initially postdilated using a 3.5 x 12 mm
NC trek balloon at 18 asher with remainder waist and therefore a 4.0 x 12 mm NC trek balloon was then used to further post dilate the stent at 20 asher with an excellent angiographic result and STEPHANIE-3 flow into the distal vessel. Patient was loaded
with 180 mg of Brilinta yesterday and will continue 90 mg of Brilinta twice daily. No acute complications.
SEDATION: 43 minutes of procedural sedation was utilized. An independent mobile paramedical examiner was present to assist with and help manage the patient's level of consciousness and physiologic status.
RADIATION SUMMARY: Fluoro Time (min): 6.2, Dose (mGy): 384.5, DAP (Gy.cm2) : 28.5
Closure Device: Vascular band over right radial artery, 8 cc of air/
CONCLUSIONS
1. Successful PCI of a hazy 80 to 85% proximal RCA stenosis with a 3.25 x 15 mm Xience ron point drug-eluting stent, postdilated using a 4.0 x 12 mm NC balloon at 20 asher with an excellent angiographic result.
RECOMMENDATIONS
1. Dual antiplatelet therapy with daily baby aspirin and Brilinta 90 mg twice daily in the setting of acute coronary syndrome, high intensity statin and beta-tl as tolerated. We will add low-dose amlodipine as a second antianginal agent.
2. Plan to manage LAD and diagonal disease medically for now and continued surveillance of moderate to severe aortic stenosis by serial echocardiograms.
3. Aggressive management of cardiovascular risk factors.
4. Wean radial band per protocol.
Copy to: Raz Kendall
Ligia Saldana MD, FACC, [facility]
--- NOTE | 2023-10-03 17:34 | PTCARENOTE ---
Received pt from recovery area. Right radial site CDI. No complaints of pain or discomfort. Call ho within reach.
[2023-10-03 17:43] LABS: Glucose - Point of Care 85 mg/dl (70-99)
[2023-10-03] MEDS: CYMBALTA DELAYED RELEASE 60 MG PO (17:44)
[2023-10-03] MEDS: LIPITOR 40 MG PO (17:44)
[2023-10-03] MEDS: NORVASC 2.5 MG PO (17:44)
[2023-10-03] MEDS: ULTRAM 50 MG PO (20:03)
[2023-10-03] MEDS: ULTRAM 25 MG PO (21:37)
[2023-10-03] MEDS: NEURONTIN 300 MG PO (21:38)
[2023-10-03 21:52] LABS: Glucose - Point of Care 195 mg/dl (70-99)
--- NOTE | 2023-10-03 21:53 | PTCARENOTE ---
Received patient with TR band in place. Prior cath site this week and was ecchymotic. Tenderness to right wrist. dull ache, throbbing pain. Medicated with Ultram. TR removed per orders. DSD. Arm elevated on pillow
[2023-10-04 04:16] VITALS: BP 106/46
[2023-10-04 04:57] LABS: % Basophils 0.6 % (0-2); % Eosinophils 2.9 % (0-6); % Immature Granulocytes 3.5 % (0-0.5); % Lymphocytes 19.6 % (20.5-51.1); % Monocytes 7.1 % (1.7-9.3); % Neutrophils 66.3 % (42.2-75.2); Absolute Basophils 0.1 10^3/uL (0-0.2); Absolute Eosinophils 0.3 10^3/uL (0-0.7); Absolute Immature Granulocytes 0.3 10^3/uL (0-0.05); Absolute Lymphocytes 1.7 10^3/uL (1.2-3.4); Absolute Monocytes 0.6 10^3/uL (0.1-0.6); Absolute Neutrophils 5.9 10^3/uL (1.4-6.5); Hematocrit 30.6 % (37.0-47.0); Hemoglobin 10.2 g/dL (12.0-16.0); Mean Corp Hgb Conc. 33.3 g/dL (33.0-37.0); Mean Corpuscular Volume 84.1 fL (81.0-99.0); Mean Platelet Volume 9.8 fL (7.4-10.4); Nucleated Red Blood Cells % 0 %; Platelet Count 269 10^3/uL (130-400); Red Blood Cell Count 3.64 10^6/uL (4.20-5.40); Red Cell Dist. Width 15.1 % (11.5-14.5); White Blood Cell Count 8.9 10^3/uL (4.8-10.8)
[2023-10-04 05:21] LABS: Blood Urea Nitrogen 22 mg/dl (7-17); Calcium 9.1 mg/dl (8.4-10.2); Carbon Dioxide 22 mmol/L (22-30); Chloride 110 mmol/L (98-107); Estimated Creatinine Clearance 49 ml/min; Glucose 85 mg/dl (70-99); Potassium 3.9 mmol/L (3.5-5.1); Sodium 140 mmol/L (135-145); eGFR > 60.00
--- NOTE | 2023-10-04 06:29 | PTCARENOTE ---
Bladder scan 100 cc
--- NOTE | 2023-10-04 06:39 | PTCARENOTE ---
Slept well overnight. Right radial site no longer painful but remains ecchymotic, radial dressing dry and intact. Walking to the bathroom independently. Call ho in reach
--- NOTE | 2023-10-04 07:00 | PTCARENOTE ---
Bedside walking rounds report received. Neuro intact other than slow and deliberate speech. Room air. Bilateral groin dressings cdi, NSR to SB. See flowrecord for remaining assessments.
--- NOTE | 2023-10-04 07:07 | W.PN.UPDATE ---
Update Note
Progress Note Update
patient is now s/p PCI to RCA yesterday. CT surgery signing off.
[2023-10-04 07:16] VITALS: BP 127/55
[2023-10-04 07:50] LABS: Glucose - Point of Care 101 mg/dl (70-99)
[2023-10-04 07:54] VITALS: BMI 33.6
[2023-10-04] MEDS: NOVOLOG FLEXPEN-LOW RESISTANCE SC ×2 (07:55→11:57)
[2023-10-04] MEDS: PROTONIX IV 40 MG IV (08:15)
[2023-10-04] MEDS: ASPIR LOW (ENTERIC COATED) 81 MG PO (08:15)
[2023-10-04] MEDS: NORVASC 2.5 MG PO (08:16)
[2023-10-04] MEDS: NSS (PRESERVATIVE FREE) 10 ML IV (08:16)
[2023-10-04] MEDS: BRILINTA 90 MG PO (08:16)
[2023-10-04] MEDS: LOPRESSOR 25 MG PO (08:16)
[2023-10-04] MEDS: COLACE 100 MG PO (08:17)
[2023-10-04] MEDS: CYMBALTA DELAYED RELEASE 30 MG PO (08:17)
--- NOTE | 2023-10-04 11:41 | W.PN.HOSP.TC ---
Addendum entered and electronically signed by Álvaro Thompson MD 10/04/23 14:43:
Ultrasound with small right wrist hematoma. No signs of pseudoaneurysm. Okay to discharge per cardiology
Time of discharge 38 minutes
Original Note:
Today's Communication/Plan
-
Monitor vital signs see plan
Continue aspirin Brilinta
Currently on metoprolol, amlodipine
Lisinopril still on hold
Cardiology to see today
Possible discharge
Assessment / Plan
Assessment / Plan
Gen-AAOx3, NAD, obese
HEENT-NC, AT, anicteric, clear oral mm
Neck-supple
CV-reg, no M, +S1/S2
Lungs-clear B/L
Abd-soft, NT, ND
Ext-no edema
Musculoskeletal-no cyanosis, clubbing
Skin-warm and dry
Neuro-grossly non-focal
Psych-calm, cooperative
NSTEMI -finished hep. Continue aspirin, beta-blockade. Troponin trending down. Cardiology following. s/p cath 09/[address] surgery consulted. preop imaging per CTS. appears now pain plan for percutaneous approach given
patient advanced age and multiple comorbid conditions. s/p proximal RCA PCI 10/03/2023. Regarding LAD, will be managed medically.
ST elevations were there on admission on inferior lead that resolved. LAD is been managed medically per cardiology.
Echo with EF 60 to 65%, stage II diastolic dysfunction. Moderate to severe aortic stenosis
On aspirin and Brilinta
Dysarthria/staccato speech -concern for stroke. Patient states symptoms started approximately 10 AM on Saturday. Speech much more fluent today and patient states back to normal. Brain MRI neg for CVA. Neurology following. CTA head and neck
without significant pathology.
LATRELL -resolved. Perhaps due to recent sulfamethoxazole exposure, volume depletion. Hold further antibiotics. Celebrex. lisinopril still on hold; defer to cardiology
Acute gastroenteritis -nausea and diarrhea since yesterday morning. Recent course of antibiotics,cdiff neg
Overactive bladder -received Botox injection last week by Dr. Barrett. Started on empiric Bactrim prior to admission. Urinalysis shows pyuria, she has no UTI symptoms.
DM2 with hyperglycemia -diet controlled diabetes. hemoglobin A1c 5.7. Low resistance NovoLog scale.
Essential hypertension -amlodipine restarted at a lower dose for antianginal effect
Hyperlipidemia -she is on simvastatin at home, will change to atorvastatin.
Chronic normocytic anemia -Monitor for now.
Obesity due to excess calories
Full code
Anticipated Discharge: Today
Subjective/Interval History
-
Date of Service: October 04, 2023
Denies chest pain
Objective Data
-
Labs:
Laboratory Results
10/04/23
04:33
WBC 8.9
Hgb 10.2 L
Hct 30.6 L
Plt Count 269
Sodium 140
Potassium 3.9
Chloride 110 H
Carbon Dioxide 22
BUN 22 H
Creatinine 0.8
Glucose 85
Calcium 9.1
Vital Signs:
Vital Signs
Temp Pulse Resp BP Pulse Ox
98.5 F 56 20 127/55 95
10/04/23 07:16 10/04/23 10:15 10/04/23 07:16 10/04/23 07:16 10/04/23 07:16
I&O
10/03/23 10/04/23 10/05/23
06:59 06:59 06:59
Intake Total 325 / 325
Output Total 600 / 600 700 / 700 300 / 300
Balance -600 / -600 -700 / -700 25 / 25
[2023-10-04 11:43] LABS: Glucose - Point of Care 116 mg/dl (70-99)
[2023-10-04 12:27] VITALS: BP 128/51
--- NOTE | 2023-10-04 12:48 | W.PN.CARDCBS ---
Addendum entered and electronically signed by Raz Kendall MD 10/04/23 15:55:
I saw and examined the patient.
The Offbearer's note was reviewed and I agree with the note.
Comment: Briefly, 83-year-old woman past medical history of moderate to severe aortic stenosis who presented with epigastric pain, nausea and diaphoresis found to have ACS
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
RCA stenosis was subsequently treated on 10/03/2023 with drug-eluting stent
Evaluation by CT surgery and plan was for medical management of residual LAD territory coronary disease
Currently asymptomatic aside for some soreness at the right radial cath site�vascular ultrasound just showing a small hematoma no aneurysm
Plan discharge on aspirin/Brilinta, high intensity statin, amlodipine, metoprolol
Cardiac rehab referral
Outpatient follow-up arranged, stable for discharge from my perspective
Original Note:
Today's Communication / Plan
-
R wrist US
med mgmt of residual CAD
continue asa, brilinta, lipitor, lopressor, norvasc
for possible DC to home later today
OP cardiac follow up arranged
Impression / Plan
-
Primary Anchor Tack Puller: Dr. Kendall
Assessment:
Epigastric pain, nausea, sweats
Inferior ST elevation which has resolved, treating as NSTEMI s/p RCA PCI 10/03/23 with residual LAD/diag disease, medically managed
Acute renal failure with creatinine of 1.7 (baseline normal)
moderate to severe aortic stenosis
Hypertension
Hyperlipidemia
Jdv-xpebwgy-mxdhflmsc diabetes
History of breast cancer status post mastectomy 2008
Fibromyalgia
History of duodenal ulcer/GERD
Anemia
Recent UTI status post Bactrim treatment
Echo 12/19: LVEF 65%, moderate aortic stenosis with mean gradient of 31, aortic valve area 1.3, mild TR with PA pressure 48
cath 09/29/23: Proximal LAD lesion, 80% diagonal, 80 to 85% proximal RCA, mean aortic gradient 36
Echo 09/30/23: EF 60 to 65%, mean gradient 35, aortic valve area 0.9, dimensionless 0.3, mild MR
Plan:
-Patient feels well this morning
-Status post RCA PCI 10/02. Does have residual LAD and diagonal disease, with plan to treat medically for now and can be reassessed as outpatient
-She does have right wrist tenderness. Will check ultrasound today
-Continue aspirin, Brilinta
-Continue atorvastatin
-In sinus rhythm on review of telemetry overnight. Continue lopressor, norvasc
-OP cardiac follow up arranged
Progress Note - Anchor Tack Puller
Subjective
Date of Service: October 04, 2023
Reports some right wrist pain, however otherwise feeling well this morning. No chest pain, shortness of breath
Objective
Labs:
10/04/23 04:33
10/04/23 04:33
Labs
Hgb 10.2 g/dL (12.0-16.0) L 10/04/23 04:33
Hct 30.6 % (37.0-47.0) L 10/04/23 04:33
Plt Count 269 10^3/uL (130-400) 10/04/23 04:33
PT 13.7 Sec (11.4-14.6) 10/02/23 06:03
INR 1.07 10/02/23 06:03
APTT Cancelled 10/01/23 19:45
Sodium 140 mmol/L (135-145) 10/04/23 04:33
Potassium 3.9 mmol/L (3.5-5.1) 10/04/23 04:33
BUN 22 mg/dl (7-17) H 10/04/23 04:33
Creatinine 0.8 mg/dL (0.6-1.0) 10/04/23 04:33
Glucose 85 mg/dl (70-99) 10/04/23 04:33
Vital Signs and I&O:
Vital Signs
Temp Pulse Resp BP Pulse Ox
98.0 F 65 20 128/51 100
10/04/23 12:31 10/04/23 12:45 10/04/23 12:31 10/04/23 12:27 10/04/23 12:32
Vital Signs
Temp Pulse Resp BP Pulse Ox
98.0 F 65 20 128/51 100
10/04/23 12:31 10/04/23 12:45 10/04/23 12:31 10/04/23 12:27 10/04/23 12:32
Intake & Output
10/02/23 10/03/23 10/04/23 10/05/23
07:59 07:59 07:59 07:59
Intake Total 1520 / 1520 325 / 325
Output Total 750 / 750 600 / 600 700 / 1000 500 / 500
Balance 770 / 770 -600 / -600 -700 / -675 -175 / -175
Physical Exam
Physical Exam
GEN: No distress, awake, alert, oriented x3
HEENT: supple, anicteric, mmm, eomi
LUNGS: CTA B/L, no wheezes/rales
CV: Reg, S1/S2, 2/6 syst LSB
ABD: soft, BS+, NT/ND
EXT: No cyanosis, clubbing, edema
NEURO: Gross non-focal
SKIN: Warm, pink, dry. No rash. R wrist site with ecchymoses extending to mid forearm, soft
--- NOTE | 2023-10-04 12:59 | CM ---
Addendum entered by Dominga Amaya 10/04/23 15:35:
Telephone call to [facility] on [address] to see if they have Brilinta 90 mg po bid in stock. [facility] on [address] does not have enough to fill the script. Telephone call to [facility] on [address] to see if they have Brilinta 0 mg po bid. [facility]
[address] does not have it in stock. Telephone call to [facility] on [address] who states they have Brilinta 90 mg po bid in stock and will fill the script. Reviewed with her and gave her the [facility]
address and phone number.
Original Note:
Reviewed chart. Met with Mrs. Davalos to review discharge plans. She states she is feeling well and maybe able to go home soon. We reviewed the she will need to see a [employer] Cardiovascular Technician before the [facility] will approve the coverage for
Brilinta. Faxed the requested reports and script to the [employer] . Also discussed having the [facility]. She is agreeable to [facility] and has selected [facility]. Telephone call to [facility] to make the referral.
Sent the referral. Prior to admission she resides alone in a two story home. She has eleven steps to get to bedroom/full bathroom. She has a powder room on the first floor. Prior to admission she was independent with ambulation and adls. She has
a prescription plan and uses [facility]. Medical work-up in progress. The discharge plan is to retrun home with [facility] when medically stable.
--- NOTE | 2023-10-04 14:43 | W.DCSUMMARY ---
Discharge Summary
Discharge Data
Date of Admission: 09/28/23
Date of Discharge: 10/04/23
-
Pending Results: No
Hospital Course
83-year-old female with past medical history of essential hypertension, hyperlipidemia, anemia, obesity, diabetes mellitus, overactive bladder, CAD came to the hospital sudden onset of abdominal discomfort along with nausea and sweating. On
admission patient had significant EKG changes along with ST elevation in inferior leads. Patient ST elevation over time improved on EKG. Patient was seen by cardiology throughout hospitalization and was initially started on IV heparin. On this
hospitalization patient also had acute kidney injury which was likely thought was secondary to recent Bactrim use. Patient renal function continue to improve and her creatinine was back to baseline. She also developed dysarthria for which she was
seen by neurology. Brain MRI was negative for CVA. Patient speech continue to improve over time. On 09/29 patient went for cardiac catheterization which showed multivessel disease along with aortic stenosis. CT surgery was then consulted. Given
patient advanced age and multiple comorbid conditions, CT surgery decided patient would rather benefit from PCI approach. Patient then underwent RCA PCI on 10/03/2023. Regarding her LAD, cardiology recommended to be managed medically. Prior to
discharge, patient had right wrist pain for which ultrasound was done which showed small hematoma however there was no signs of pseudoaneurysm. Cardiology deemed patient is stable to be discharged home with outpatient monitoring. Patient was
eventually started on aspirin and Brilinta. She was also started on amlodipine and metoprolol. Echocardiogram was done which showed EF of 60 to 65% with stage II diastolic dysfunction. Once patient symptoms continue to improve, she was then
discharged home with instructions to follow-up with all her physicians outpatient.
Discharge Plan
-
Patient Disposition: Home (Routine Discharge)
Discharge Diagnosis/Procedures: NSTEMI, Angioplasty with stent to RCA
Acute kidney injury
Acute gastroenteritis
Dysarthria
small hematoma of right wrist
Diet: Low Cholesterol
Activity: As tolerated
Driving Restrictions: No driving for 24 hours
Other Services: Cardiac Rehab
Activity Restrictions/Additional Instructions:
Apply ice application on your wrist
Stand Alone Forms: DC Instructions- Cath/EP Lab
Referrals:
[facility] [Outside] - in one to two days
[facility]. Cardiac Rehab [Outside] - 11/14/23 1:00 pm
(Cardiac Rehab Orientation appointment is on 11/14/23 (Th.) at 1:00 pm
The Cardiac Rehab gym is located on the first floor of the [facility].)
Nyla Bundy DO [Family Provider] - in less than 1 week
()
Breanna Ray PA-C [Specified Professional Personl] - 10/30/23 9:40 am
Prescriptions:
New
Brilinta 90 mg Tablet
90 mg PO BID Qty: 60 11RF
acetaminophen 325 mg Tablet
650 mg PO Q6HPRN PRN (Reason: mild pain/ fever>100.5F) Qty: 0 0RF
amlodipine 2.5 mg Tablet
2.5 mg PO DAILY Qty: 30 0RF
aspirin 81 mg Tablet,Delayed Release (Dr/Ec)
81 mg PO DAILY Qty: 30 0RF
atorvastatin 40 mg Tablet
40 mg PO QPM Qty: 30 0RF
metoprolol tartrate 25 mg Tablet
25 mg PO BID Qty: 60 0RF
Continued
omeprazole 20 MG capsule,delayed release(DR/EC)
20 mg PO Q72H
tramadol 50 MG tablet
50 mg PO HS
Patient Comments:
09/28/2023: last filled 09/06/23, 120 tabs for 30 days, from [facility]
duloxetine 30 MG capsule,delayed release(DR/EC)
30 mg PO DAILY
duloxetine 60 MG capsule,delayed release(DR/EC)
60 mg PO QPM
docusate sodium 100 MG capsule
100 mg PO DAILY
gabapentin 300 MG capsule
300 mg PO HS
Calcium Citrate Plus (Vit B6) 1 EACH tablet
1 ea PO DAILY
Turmeric W/ Black Pepper Extra
1 tab PO HS
Vitamin B Complex
1,200 units sublingual SA
multivitamin [One Daily Essential] 1 EACH tablet
1 ea PO DAILY
cholecalciferol (vitamin D3) [Vitamin D3] 25 mcg (1,000 unit) Tablet
50 mcg PO DAILY
Discontinued
celecoxib 200 MG capsule
200 mg PO DAILY
amlodipine 5 MG tablet
5 mg PO DAILY
simvastatin 10 mg tablet
10 mg PO HS
lisinopril 40 mg tablet
40 mg PO DAILY
Discharge Orders:
Discharge Patient (As Directed); Ordered 10/04/23
Ordered By: Álvaro Thompson
Care Plan Goals
Care Plan Goals:
Problem: Readiness for enhanced knowledge related to diagnosis and treatment plan
Goal: Understand your diagnosis and treatment plan needs, including medications if applicable.
Instructions: Know your diagnosis, underlying causes and treatment plan options, including medications if applicable. Consult with your health care team to learn about your diagnosis and treatment plan, including medications if applicable.
Discharge Date and Time
Discharge Date/Time: 10/04/23 16:56
Print Language: KOREAN
[2023-10-04 16:08] VITALS: BP 121/58
[2023-10-09 08:18] LABS: ACT-LR - POC 300 Seconds (116-155)
[2023-10-09 08:18] LABS: ACT-LR - POC 239 Seconds (116-155)
== END 2023-10-04 16:56 | disposition home health service (06) | DRG 322 ==
LOC: IVU 15:10
PROVIDERS: Clinical Nurse Specialist Acute Care; Internal Medicine Interventional Cardiology; Physician Assistant Medical; ADMITTING PHYSICIAN Hospitalist; ATTENDING PHYSICIAN Internal Medicine; CONSULT PHYSICIAN Internal Medicine Cardiovascular Disease; CONSULT PHYSICIAN Psychiatry & Neurology Neurology; CONSULT PHYSICIAN Thoracic Surgery (Cardiothoracic Vascular Surgery); EMERGENCY PHYSICIAN Emergency Medicine; FAMILY PHYSICIAN Internal Medicine
PROC: 4A033BC Measurement of Arterial Pressure, Coronary, Percutaneous Approach (ICD-10-PCS; 2023-09-30)
PROC: 4A023N7 Measurement of Cardiac Sampling and Pressure, Left Heart, Percutaneous Approach (ICD-10-PCS; 2023-09-30)
PROC: B2111ZZ Fluoroscopy of Multiple Coronary Arteries using Low Osmolar Contrast (ICD-10-PCS; 2023-09-30)
PROC: 027034Z Dilation of Coronary Artery, One Artery with Drug-eluting Intraluminal Device, Percutaneous Approach (ICD-10-PCS; 2023-10-03)
DX: I21.4 Non-ST elevation (NSTEMI) myocardial infarction (principal); N17.8 Other acute kidney failure; E11.65 Type 2 diabetes mellitus with hyperglycemia; E11.40 Type 2 diabetes mellitus with diabetic neuropathy, unspecified; D50.9 Iron deficiency anemia, unspecified; E66.09 Other obesity due to excess calories; Z68.35 Body mass index [BMI] 35.0-35.9, adult; I35.0 Nonrheumatic aortic (valve) stenosis; I10 Essential (primary) hypertension; I95.9 Hypotension, unspecified; I25.10 Atherosclerotic heart disease of native coronary artery without angina pectoris; E78.5 Hyperlipidemia, unspecified; K21.00 Gastro-esophageal reflux disease with esophagitis, without bleeding; R47.89 Other speech disturbances; R47.1 Dysarthria and anarthria; G47.30 Sleep apnea, unspecified; M79.7 Fibromyalgia; K52.9 Noninfective gastroenteritis and colitis, unspecified; M48.02 Spinal stenosis, cervical region; N32.81 Overactive bladder; M81.0 Age-related osteoporosis without current pathological fracture; Q82.8 Other specified congenital malformations of skin; N14.19 Nephropathy induced by other drugs, medicaments and biological substances; T36.8X5A Adverse effect of other systemic antibiotics, initial encounter; S60.211A Contusion of right wrist, initial encounter; Z85.3 Personal history of malignant neoplasm of breast; Z79.899 Other long term (current) drug therapy; Z87.19 Personal history of other diseases of the digestive system; Z87.11 Personal history of peptic ulcer disease; Z87.440 Personal history of urinary (tract) infections; Z88.8 Allergy status to other drugs, medicaments and biological substances; Z82.49 Family history of ischemic heart disease and other diseases of the circulatory system; Z90.12 Acquired absence of left breast and nipple; Z98.84 Bariatric surgery status; Z96.611 Presence of right artificial shoulder joint; Z96.653 Presence of artificial knee joint, bilateral
CPT/HCPCS: 70355; 70496; 70498; 70551; 71275; 74174; 80048; 80053; 80061; 81003; 81015; 82248; 82962; 83036; 83690; 84484; 85025; 85347; 85610; 85730; 86850; 86900; 86901; 87045; 87046; 87324; 87427; 87449; 89055; 93005; 93306; 93458; 93571; 93880; 93931; 96365; 96366; 96375; 99152; 99153; 99291; C1725; C1769; C1874; C1894; C9600; Q9967

== ENCOUNTER 2023-11-25 11:24 | Outpatient (RCR) | payer MEDICARE, SELFPAY | END 2023-11-25 23:59 | disposition home or self-care (01) | LOC: CRHB 11:24 | PROVIDERS: ATTENDING PHYSICIAN Internal Medicine Cardiovascular Disease | DX: I25.10 Atherosclerotic heart disease of native coronary artery without angina pectoris (principal); Z95.5 Presence of coronary angioplasty implant and graft; I25.2 Old myocardial infarction | CPT/HCPCS: G0422; G0423 ==

== ENCOUNTER 2023-12-27 11:16 | Outpatient (RCR) | payer MEDICARE, SELFPAY ==
[2023-12-06 11:42] LABS: Glucose - Point of Care 92 mg/dl (70-99)
[2023-12-06 12:01] LABS: Glucose - Point of Care 82 mg/dl (70-99)
[2023-12-09 11:00] LABS: Glucose - Point of Care 109 mg/dl (70-99)
[2023-12-09 11:52] LABS: Glucose - Point of Care 79 mg/dl (70-99)
[2023-12-09 12:00] LABS: Glucose - Point of Care 82 mg/dl (70-99)
[2023-12-13 11:17] LABS: Glucose - Point of Care 98 mg/dl (70-99)
[2023-12-13 12:06] LABS: Glucose - Point of Care 83 mg/dl (70-99)
[2023-12-16 10:59] LABS: Glucose - Point of Care 156 mg/dl (70-99)
[2023-12-16 11:53] LABS: Glucose - Point of Care 115 mg/dl (70-99)
[2023-12-18 10:49] LABS: Glucose - Point of Care 114 mg/dl (70-99)
[2023-12-18 11:47] LABS: Glucose - Point of Care 85 mg/dl (70-99)
[2023-12-23 11:19] LABS: Glucose - Point of Care 113 mg/dl (70-99)
[2023-12-23 12:12] LABS: Glucose - Point of Care 76 mg/dl (70-99)
[2023-12-23 12:23] LABS: Glucose - Point of Care 90 mg/dl (70-99)
[2023-12-27 10:51] LABS: Glucose - Point of Care 90 mg/dl (70-99)
[2023-12-27 11:54] LABS: Glucose - Point of Care 79 mg/dl (70-99)
[2023-12-27 12:00] LABS: Glucose - Point of Care 85 mg/dl (70-99)
== END 2023-12-27 23:59 | disposition home or self-care (01) ==
LOC: CRHB 11:16
PROVIDERS: ATTENDING PHYSICIAN Internal Medicine Cardiovascular Disease
DX: I25.10 Atherosclerotic heart disease of native coronary artery without angina pectoris (principal); Z95.5 Presence of coronary angioplasty implant and graft; I25.2 Old myocardial infarction
CPT/HCPCS: 82962; G0422; G0423

== ENCOUNTER 2024-01-27 11:19 | Outpatient (RCR) | payer MEDICARE, SELFPAY ==
[2024-01-01 10:55] LABS: Glucose - Point of Care 167 mg/dl (70-99)
[2024-01-01 11:50] LABS: Glucose - Point of Care 83 mg/dl (70-99)
[2024-01-03 11:01] LABS: Glucose - Point of Care 112 mg/dl (70-99)
[2024-01-03 11:51] LABS: Glucose - Point of Care 85 mg/dl (70-99)
[2024-01-06 11:18] LABS: Glucose - Point of Care 136 mg/dl (70-99)
[2024-01-06 12:22] LABS: Glucose - Point of Care 99 mg/dl (70-99)
[2024-01-10 10:59] LABS: Glucose - Point of Care 151 mg/dl (70-99)
[2024-01-10 11:57] LABS: Glucose - Point of Care 93 mg/dl (70-99)
[2024-01-13 11:03] LABS: Glucose - Point of Care 111 mg/dl (70-99)
[2024-01-13 11:59] LABS: Glucose - Point of Care 87 mg/dl (70-99)
[2024-01-17 10:50] LABS: Glucose - Point of Care 145 mg/dl (70-99)
[2024-01-17 11:59] LABS: Glucose - Point of Care 91 mg/dl (70-99)
== END 2024-01-27 23:59 | disposition home or self-care (01) ==
LOC: CRHB 11:19
PROVIDERS: ATTENDING PHYSICIAN Internal Medicine Cardiovascular Disease
DX: I25.10 Atherosclerotic heart disease of native coronary artery without angina pectoris (principal); Z95.5 Presence of coronary angioplasty implant and graft; I25.2 Old myocardial infarction
CPT/HCPCS: 82962; G0422; G0423

== ENCOUNTER → 2024-02-13 06:55 | Outpatient (REF) | payer MEDICARE, SELFPAY ==
[2024-02-13] MEDS: LEXISCAN 0.4 MG IV (09:04)
== END ==
LOC: RCS 06:55
PROVIDERS: ATTENDING PHYSICIAN Physician Assistant; FAMILY PHYSICIAN Family Medicine
DX: I25.10 Atherosclerotic heart disease of native coronary artery without angina pectoris (principal); I35.0 Nonrheumatic aortic (valve) stenosis; I10 Essential (primary) hypertension; E78.5 Hyperlipidemia, unspecified; E11.9 Type 2 diabetes mellitus without complications
CPT/HCPCS: 78452; 93017; A9500; J2785

== ENCOUNTER → 2024-02-13 12:52 | Outpatient (REF) | payer MEDICARE, SELFPAY | LOC: RCS 12:52 | PROVIDERS: ATTENDING PHYSICIAN Physician Assistant; FAMILY PHYSICIAN Family Medicine | DX: I25.10 Atherosclerotic heart disease of native coronary artery without angina pectoris (principal); I35.0 Nonrheumatic aortic (valve) stenosis | CPT/HCPCS: 93306 ==

== ENCOUNTER 2024-02-24 11:53 | Outpatient (RCR) | payer MEDICARE, SELFPAY | END 2024-02-24 23:59 | disposition home or self-care (01) | LOC: CRHB 11:53 | PROVIDERS: ATTENDING PHYSICIAN Internal Medicine Cardiovascular Disease | DX: I25.10 Atherosclerotic heart disease of native coronary artery without angina pectoris (principal); Z95.5 Presence of coronary angioplasty implant and graft; I25.2 Old myocardial infarction | CPT/HCPCS: G0422; G0423 ==

== ENCOUNTER → 2024-05-12 09:53 | Outpatient (REF) | payer MEDICARE, SELFPAY ==
[2024-05-12 12:35] LABS: % Basophils 0.5 % (0-2); % Eosinophils 1.7 % (0-6); % Immature Granulocytes 0.3 % (0-0.5); % Lymphocytes 13.8 % (20.5-51.1); % Monocytes 6.1 % (1.7-9.3); % Neutrophils 77.6 % (42.2-75.2); Absolute Eosinophils 0.2 10^3/uL (0-0.7); Absolute Lymphocytes 1.2 10^3/uL (1.2-3.4); Absolute Monocytes 0.5 10^3/uL (0.1-0.6); Absolute Neutrophils 6.7 10^3/uL (1.4-6.5); Hematocrit 36.8 % (37.0-47.0); Hemoglobin 11.9 g/dL (12.0-16.0); Mean Corp Hgb Conc. 32.3 g/dL (33.0-37.0); Mean Corpuscular Hgb 28.2 pg (27.0-31.0); Mean Corpuscular Volume 87.2 fL (81.0-99.0); Mean Platelet Volume 9.1 fL (7.4-10.4); Nucleated Red Blood Cells % 0 %; Platelet Count 329 10^3/uL (130-400); Red Blood Cell Count 4.22 10^6/uL (4.20-5.40); Red Cell Dist. Width 16.4 % (11.5-14.5); White Blood Cell Count 8.7 10^3/uL (4.8-10.8)
[2024-05-12 13:46] LABS: ALT (SGPT) 18 U/L (0-35); AST (SGOT) 24 U/L (14-36); Albumin 4.6 g/dl (3.5-5.0); Alkaline Phosphatase 149 U/L (38-126); Blood Urea Nitrogen 20 mg/dl (7-17); Calcium 9.5 mg/dl (8.4-10.2); Carbon Dioxide 21 mmol/L (22-30); Chloride 99 mmol/L (98-107); Glucose 86 mg/dl (70-99); Iron 67 ug/dl (37-170); Potassium 4.7 mmol/L (3.5-5.1); Sodium 135 mmol/L (135-145); Total Bilirubin 0.4 mg/dl (0.2-1.3); Total Protein 7.2 g/dl (6.3-8.2); eGFR > 60.00
[2024-05-12 13:56] LABS: Percent Saturation 22 % (20-50); Total Iron Binding Capacity 296 ug/dl (265-497)
[2024-05-12 15:28] LABS: Ferritin 74.1 ng/ml (11.1-264.0)
== END ==
LOC: REG 09:53
PROVIDERS: ATTENDING PHYSICIAN Family Medicine; OTHER PHYSICIAN Internal Medicine; OTHER PHYSICIAN Internal Medicine Cardiovascular Disease
DX: R74.01 Elevation of levels of liver transaminase levels (principal)
CPT/HCPCS: 36415; 80053; 82728; 83540; 83550; 85025

== ENCOUNTER → 2024-07-17 14:09 | Outpatient (REF) | payer MEDICARE, SELFPAY | LOC: WDC 14:09 | PROVIDERS: ATTENDING PHYSICIAN Obstetrics & Gynecology; FAMILY PHYSICIAN Family Medicine | DX: Z12.31 Encounter for screening mammogram for malignant neoplasm of breast (principal) | CPT/HCPCS: 77063; 77067 ==

== ENCOUNTER 2024-08-19 08:13 | Outpatient (RCR) | payer SELFPAY | END 2024-08-20 05:58 | disposition home or self-care (01) | LOC: ROT 08:13 | PROVIDERS: ATTENDING PHYSICIAN Family Medicine | DX: Z02.4 Encounter for examination for driving license (principal) ==

== ENCOUNTER → 2024-09-01 07:10 | Outpatient (REF) | payer OTHER, SELFPAY ==
[2024-09-01 08:31] LABS: ALT (SGPT) 24 U/L (0-35); AST (SGOT) 24 U/L (14-36); Albumin 4.2 g/dl (3.5-5.0); Alkaline Phosphatase 80 U/L (38-126); Blood Urea Nitrogen 22 mg/dl (7-17); Calcium 9.6 mg/dl (8.4-10.2); Carbon Dioxide 28 mmol/L (22-30); Chloride 106 mmol/L (98-107); Glucose 123 mg/dl (70-99); Potassium 4.4 mmol/L (3.5-5.1); Sodium 143 mmol/L (135-145); Total Bilirubin 0.7 mg/dl (0.2-1.3); Total Protein 6.7 g/dl (6.3-8.2); eGFR > 60.00
[2024-09-01 09:49] LABS: Glycohemoglobin (HgbA1c) 5.9 % (4.0-5.6)
[2024-09-01 11:51] LABS: Microalbumin, Random Urine 0.8 mg/dl (0.6-1.7)
[2024-09-01 12:12] LABS: Microalbumin/creatinine Ratio 9.8 mg/g
== END ==
LOC: REG 07:10
PROVIDERS: ATTENDING PHYSICIAN Family Medicine
DX: E11.40 Type 2 diabetes mellitus with diabetic neuropathy, unspecified (principal); I10 Essential (primary) hypertension; E78.00 Pure hypercholesterolemia, unspecified
CPT/HCPCS: 36415; 80053; 82043; 82570; 83036

== ENCOUNTER → 2024-09-15 10:49 | Outpatient (REF) | payer OTHER, SELFPAY | LOC: RCS 10:49 | PROVIDERS: ATTENDING PHYSICIAN Internal Medicine Cardiovascular Disease; FAMILY PHYSICIAN Family Medicine | DX: I35.0 Nonrheumatic aortic (valve) stenosis (principal) | CPT/HCPCS: 93306 ==

== ENCOUNTER → 2024-09-18 11:27 | Outpatient (REF) | payer OTHER, SELFPAY ==
[2024-09-18 17:04] LABS: Urine Albumin Negative (Neg - Trace); Urine Bilirubin Negative (Negative); Urine Character Cloudy (Clear); Urine Color Yellow; Urine Glucose Negative (Negative); Urine Ketone Negative (Negative); Urine Leukocyte 2+ (Negative); Urine Nitrite Positive (Negative); Urine Occult Blood 1+ (Negative); Urine Urobilinogen Negative (Neg - 1+); Urine pH 6.5 (5.0-9.0)
[2024-09-18 17:34] LABS: Urine Bacteria Many (Negative); Urine Red Blood Cell 0-2 /HPF (0-2); Urine Squamous Cell >30 /LPF (Few); Urine White Cell 40-50 /HPF (0-5)
== END ==
LOC: CLAB 11:27
PROVIDERS: ATTENDING PHYSICIAN Physician Assistant
DX: N39.0 Urinary tract infection, site not specified (principal)
CPT/HCPCS: 81003; 81015; 87077; 87086

== ENCOUNTER → 2024-11-03 07:22 | Outpatient (REF) | payer OTHER, SELFPAY ==
[2024-11-03 08:29] LABS: Hematocrit 35.4 % (37.0-47.0); Hemoglobin 11.7 g/dL (12.0-16.0); Mean Corp Hgb Conc. 33.1 g/dL (33.0-37.0); Mean Corpuscular Volume 87.8 fL (81.0-99.0); Nucleated Red Blood Cells % 0 %; Platelet Count 273 10^3/uL (130-400); Red Cell Dist. Width 14.9 % (11.5-14.5)
[2024-11-03 08:56] LABS: ALT (SGPT) 21 U/L (0-35); AST (SGOT) 24 U/L (14-36); Albumin 4.5 g/dl (3.5-5.0); Alkaline Phosphatase 50 U/L (38-126); Blood Urea Nitrogen 22 mg/dl (7-17); Calcium 9.6 mg/dl (8.4-10.2); Carbon Dioxide 23 mmol/L (22-30); Chloride 107 mmol/L (98-107); Glucose 174 mg/dl (70-99); Iron 86 ug/dl (37-170); Potassium 4.2 mmol/L (3.5-5.1); Sodium 139 mmol/L (135-145); Total Protein 6.9 g/dl (6.3-8.2); eGFR > 60.00
[2024-11-03 09:11] LABS: Vitamin D, 25-OH*** 62.3 ng/mL (30-80)
== END ==
LOC: REG 07:22
PROVIDERS: ATTENDING PHYSICIAN Internal Medicine Rheumatology; FAMILY PHYSICIAN Family Medicine
DX: E55.9 Vitamin D deficiency, unspecified (principal); M81.0 Age-related osteoporosis without current pathological fracture; D50.9 Iron deficiency anemia, unspecified; E11.40 Type 2 diabetes mellitus with diabetic neuropathy, unspecified
CPT/HCPCS: 36415; 80053; 82306; 83540; 85025

== ENCOUNTER → 2024-11-26 14:41 | Outpatient (REF) | payer OTHER, SELFPAY | LOC: CLAB 14:41 | PROVIDERS: ATTENDING PHYSICIAN Obstetrics & Gynecology | DX: R39.9 Unspecified symptoms and signs involving the genitourinary system (principal) | CPT/HCPCS: 87077; 87086 ==

== ENCOUNTER → 2024-12-12 12:10 | Outpatient (REF) | payer OTHER, SELFPAY | LOC: PAVMRI 12:10 | PROVIDERS: ATTENDING PHYSICIAN Specialist; FAMILY PHYSICIAN Family Medicine | DX: R47.1 Dysarthria and anarthria (principal) | CPT/HCPCS: 70551 ==

== ENCOUNTER → 2024-12-31 07:48 | Outpatient (REF) | payer OTHER, SELFPAY ==
[2024-12-31 09:39] LABS: Hematocrit 37.4 % (37.0-47.0); Hemoglobin 12.0 g/dL (12.0-16.0); Mean Corp Hgb Conc. 32.1 g/dL (33.0-37.0); Mean Corpuscular Volume 84.6 fL (81.0-99.0); Nucleated Red Blood Cells % 0 %; Platelet Count 288 10^3/uL (130-400); Red Cell Dist. Width 15.2 % (11.5-14.5)
[2024-12-31 10:17] LABS: ALT (SGPT) 23 U/L (0-35); AST (SGOT) 25 U/L (14-36); Albumin 4.5 g/dl (3.5-5.0); Alkaline Phosphatase 85 U/L (38-126); Blood Urea Nitrogen 24 mg/dl (7-17); Calcium 9.3 mg/dl (8.4-10.2); Carbon Dioxide 24 mmol/L (22-30); Chloride 107 mmol/L (98-107); Glucose 109 mg/dl (70-99); HDL Cholesterol 95 mg/dl; LDL Cholesterol, Calculated 22 mg/dl; Potassium 4.7 mmol/L (3.5-5.1); Sodium 139 mmol/L (135-145); Total Protein 7.2 g/dl (6.3-8.2); Very Low Density Lipoprotein 17 mg/dl (0-30); eGFR > 60.00
[2024-12-31 10:23] LABS: C-Reactive Protein < 5.00 mg/L (0.0-10.00)
[2024-12-31 11:29] LABS: Folate 18.3 ng/ml (2.76-20); Vitamin B12 468 pg/ml (239-931)
[2024-12-31 16:01] LABS: Rheumatoid Agglutinin Less Than 10 IU (<10 IU)
[2025-01-02 04:55] LABS: CCP Antibody IgG/IgA 4 Units (0-19)
== END ==
LOC: REG 07:48
PROVIDERS: ATTENDING PHYSICIAN Internal Medicine Rheumatology; FAMILY PHYSICIAN Family Medicine; OTHER PHYSICIAN Specialist
DX: M15.4 Erosive (osteo)arthritis (principal); R47.1 Dysarthria and anarthria; G20.A1 Parkinson's disease without dyskinesia, without mention of fluctuations; D51.9 Vitamin B12 deficiency anemia, unspecified; D52.9 Folate deficiency anemia, unspecified; R70.0 Elevated erythrocyte sedimentation rate; E07.9 Disorder of thyroid, unspecified; E78.49 Other hyperlipidemia; G70.01 Myasthenia gravis with (acute) exacerbation
CPT/HCPCS: 36415; 80053; 80061; 82607; 82746; 84443; 85025; 85652; 86041; 86140; 86200; 86430

== ENCOUNTER → 2025-03-15 06:26 | Outpatient (REF) | payer OTHER, SELFPAY ==
[2025-03-15 07:58] LABS: Hematocrit 38.8 % (37.0-47.0); Hemoglobin 12.7 g/dL (12.0-16.0); Mean Corp Hgb Conc. 32.7 g/dL (33.0-37.0); Mean Corpuscular Volume 86.0 fL (81.0-99.0); Nucleated Red Blood Cells % 0 %; Platelet Count 264 10^3/uL (130-400); Red Cell Dist. Width 16.2 % (11.5-14.5)
[2025-03-15 09:29] LABS: Glycohemoglobin (HgbA1c) 5.8 % (4.0-5.9)
[2025-03-15 11:18] LABS: ALT (SGPT) 12 U/L (0-35); AST (SGOT) 31 U/L (14-36); Albumin 4.7 g/dl (3.5-5.0); Alkaline Phosphatase 54 U/L (38-126); Blood Urea Nitrogen 21 mg/dl (7-17); Calcium 9.5 mg/dl (8.4-10.2); Carbon Dioxide 24 mmol/L (22-30); Chloride 102 mmol/L (98-107); Glucose 110 mg/dl (70-99); HDL Cholesterol 91 mg/dl; Iron 62 ug/dl (37-170); LDL Cholesterol, Calculated 24 mg/dl; Potassium 4.5 mmol/L (3.5-5.1); Sodium 136 mmol/L (135-145); Total Protein 7.5 g/dl (6.3-8.2); Very Low Density Lipoprotein 10 mg/dl (0-30); eGFR > 60.00
[2025-03-15 11:28] LABS: Total Iron Binding Capacity 315 ug/dl (265-497)
== END ==
LOC: REG 06:26
PROVIDERS: ATTENDING PHYSICIAN Family Medicine
DX: D50.9 Iron deficiency anemia, unspecified (principal); E11.40 Type 2 diabetes mellitus with diabetic neuropathy, unspecified; I25.10 Atherosclerotic heart disease of native coronary artery without angina pectoris
CPT/HCPCS: 36415; 80053; 80061; 83036; 83540; 83550; 85025

== ENCOUNTER → 2025-03-31 12:56 | Outpatient (REF) | payer OTHER, SELFPAY | LOC: RAD 12:56 | PROVIDERS: ATTENDING PHYSICIAN Family Medicine | DX: R91.1 Solitary pulmonary nodule (principal) | CPT/HCPCS: 71250 ==